=== PATIENT | male | born 1960 | race African-American/Black ===

== ENCOUNTER 2024-06-20 14:15 | Inpatient (IN) | payer MEDICARE, MEDICAID, SELFPAY ==
[2024-06-20] VITALS (8 sets, daily range): BP systolic 110–144; BP diastolic 64–94; PULSE 121–129; RESP 17–18; TEMP 38.1–39.4; O2SAT 86–99; BMI 20.9
--- NOTE | 2024-06-20 14:38 | EKG12_ITS ---
Test Reason : SOB Blood Pressure : */* mmHG Vent. Rate : 140 BPM Atrial Rate : 140 BPM P-R Int : 144 ms QRS Dur : 78 ms QT Int : 354 ms P-R-T Axes : 43 21 54 degrees QTcB Int : 540 ms Critical Test Result: High HR Sinus tachycardia Otherwise normal ECG Confirmed by PAPITO MEJIA, DEBO ([id number]), technical editor SONJA ADAMS ([id number]) on 06/27/2024 12:36:49 PM Referred By: MAURICIO Confirmed By: DEBO COBOS MD
--- NOTE | 2024-06-20 14:45 | EX.ED.VIS.UR ---
HPI HPI - URI History of Present Illness Chief Complaint: Shortness of Breath Narrative Narrative: 63-year-old male from a [facility]. He is unable to speak which I think is chronic. Will try to get over the penitentiary to get additional information. Reportedly was coughing and a sentiment for evaluation. Recent Illness/Hospitalization: No ROS ROS ED ROS Narrative Unable to obtain due to the patient's unable to speak. Review of Systems ROS Unobtainable: due to mental status Constitutional Constitutional ED: Reports fever(s) [facility] Medical History History of gastrostomy tube placement Cardiomegaly Home Medications ?Medication ?Instructions ?Recorded ?Last Taken ?Type acetaminophen 325 mg capsule 650 mg PO Q6H PRN 05/26/21 Unknown History (Tylenol) acetaminophen 325 mg capsule 975 mg PO BID 05/26/21 Unknown History (Tylenol) alprazolam 0.5 mg tablet 0.5 mg PO DAILY PRN 05/26/21 Unknown History guaifenesin 100 mg/5 mL oral liquid 200 mg PO Q4H PRN 05/26/21 Unknown History loratadine 10 mg capsule 10 mg PO DAILY 05/26/21 Unknown History polyethylene glycol 3350 17 17 g PO DAILY 05/26/21 Unknown History gram/dose oral powder (Miralax) propylene glycol 0.6 % eye drops 1 drp ophthalmic (eye) TID PRN 11/30/22 Unknown History (Systane Complete) sertraline 100 mg tablet 100 mg PO DAILY 11/30/22 Unknown History baclofen 10 mg tablet 10 mg .Route .COMPLEX #90 tabs 07/26/23 Unknown Rx levetiracetam 250 mg tablet 250 mg .Route .COMPLEX #60 tabs 07/26/23 Unknown Rx ykvkpfjsovdgxmq-hmruuvvwhvcrjpa-ST 5 ml PO Q4-6H PRN 05/29/24 Unknown History 2 mg-30 mg-10 mg/5 mL oral syrup dextran 70-hypromellose 0.1 %-0.3 1 drp ophthalmic (eye) QHS PRN 05/29/24 Unknown History % eye drops (GenTeal Tears Mild) lactose-reduced food with fiber ml PO TID 05/29/24 Unknown History 0.06 gram-1.5 kcal/mL oral liquid (Jevity 1.5 Raymundo) mineral oil gtts See Rx Instructions otic (ear) 05/29/24 Unknown History .COMPLEX white petrolatum-mineral oil 56.8 1 applic ophthalmic (eye) QHS 05/29/24 Unknown History %-42.5 % eye ointment (Refresh Lacri-Lube) Allergy/AdvReac Type Severity Reaction Status Date / Time tuberculin,PPD,multi-puncture Allergy Unknown unknown Verified 06/20/24 14:18 Social History Smoking Status: Never smoker second hand exposure: No alcohol intake: never substance use type: does not use seatbelt use: always EXAM Physical Exam Narrative Exam Narrative: 63-year-old male sitting upright in bed. Eyes are open. Vital signs temperature 100.6 orally. Pulse rate 121. Blood pressure 110/64. Pulse ox 95% on 2 L. Patient does not speak he is unable to communicate. There is no one with him. H EENT exam pupils round reactive light. No trauma to his head or neck. Trachea midline. Dry mucous membranes. No lymphadenopathy. Heart tachycardic 120 no murmur. Lungs coarse breath sounds bilaterally. Abdomen soft, nondistended normal bowel sounds without peritoneal signs. He is a gastric tube left upper quadrant. Extremities he has contractures in his upper extremities. Structures and muscular atrophy in his lower extremities. Neurologically his eyes are open. He is awake. He is unable to communicate by speech. He follows limited and no commands. Const Vital Signs: 06/20/24 14:18 06/20/24 14:22 06/20/24 14:38 Temperature 100.6 F H 100.6 F H Temperature Source Oral Oral Pulse Rate 121 H 128 H Respiratory Rate 17 18 Respiratory Effort Respiratory Depth Respiratory Pattern Blood Pressure 110/64 122/64 H Blood Pressure Mean 79 83 Pulse Ox 95 96 Oxygen Delivery Method Nasal Cannula Room Air Room Air Oxygen Flow Rate (L/min) 2 06/20/24 14:45 Temperature Temperature Source Pulse Rate Respiratory Rate Respiratory Effort Normal Respiratory Depth Normal Respiratory Pattern Normal Blood Pressure Blood Pressure Mean Pulse Ox Oxygen Delivery Method Nasal Cannula Oxygen Flow Rate (L/min) 2 Positive well nourished, well developed and contractures; Negative for obese or cachectic General Appearance ED: well developed and contractures; Negative for cachectic, cyanotic, diaphoretic or pallor Nutritional Appearance: Negative for cachectic or obese HEENT Reports dry mucous membranes normocephalic and atraumatic Mouth ED: Yes dry mucous membranes Mouth: dry mucous membranes Throat: posterior oropharynx normal Eyes PERRL and EOMs intact bilaterally Neck no lymphadenopathy, supple, no meningeal signs and no JVD Resp normal respiratory effort Resp Narrative: Coarse breath sounds bilaterally. Cardio S1 normal heart sound, S2 normal heart sound and no murmurs Rate: tachycardic Rhythm: regular rhythm GI non-tender and no masses Palpation: soft; Negative for tender, guarding or mass Back/Spine no CVA tenderness and normal ROM Extremity Negative for normal to inspection or full ROM Extremity Narrative: Contractures. Nontender. No edema. No swelling. No deformity. Limited range of motion. Muscular atrophy. General Extremety ED: Negative for cyanosis General Extremity: Negative for cyanosis Neuro No oriented x3 Neuro Narrative: Patient unable to speak. Not following commands. Eyes open. Awake. Contractures. Limited range of motion of both upper and lower extremities. Contractures. Sensorium / Orientation: orientation impaired; Negative for oriented to person, oriented to place or oriented to time Motor Exam: Negative for strength 5/5 throughout Psych mental status grossly normal Skin General Skin Exam: Negative for jaundice or pallor Lesions: no lesions Rashes: no rashes MDM MDM MDM Narrative Medical decision making narrative: 63-year-old male from a local penitentiary in [facility]. He has been there for years. I spoke to Joanne one of the penitentiary staff there. She said has been there for years. He has been coughing the last couple days. Today they were concerned he possibly may have aspirated his tube feed. Patient himself is unable to give any history. He had a hypoxia at the penitentiary facility in the high 80s. Undergoing evaluation for possible pneumonia versus aspiration versus viral URI etc. Repeat exam around 3:45 PM no significant change. Patient did have some vomiting he was given Zofran. His abdomen remains benign, nontender nondistended. He has bowel sounds. I also spoke to one of the workers from the penitentiary and came in to see the patient. He takes care of him frequently. He said this is not his baseline. Was concerned that he did aspirate at their facility. Lab Data Attestation: I reviewed the patient's lab results. Lab results narrative: CBC normal. White count 8.5. H&H 13 and 40. Platelets 198. Chest x-ray portable single view interpreted by myself shows no acute abnormality. No obvious pneumonia. Chemistries show sodium 142. Gap 15. BUN of 31 creatinine of 1 consistent with dehydration. Glucose 133. COVID, flu and RSV are negative. Labs: Laboratory Results - last 24 hr 06/20/24 14:33 WBC 8.5 RBC 4.63 Hgb 13.7 Hct 41.0 MCV 88.6 MCH 29.6 MCHC 33.4 RDW Std Deviation 40.1 RDW Coeff of Usha 12.5 Plt Count 198 MPV 11.7 Immature Gran % (Auto) 0.200 Neut % (Auto) 87.1 H Lymph % (Auto) 7.4 L [place] % (Auto) 3.8 Eos % (Auto) 1.3 Baso % (Auto) 0.2 Absolute Neuts (auto) 7.4 Absolute Lymphs (auto) 0.63 L Nucleated RBC % 0 Sodium 142 Potassium 4.2 Chloride 103 Carbon Dioxide 24.1 Anion Gap 15 BUN 31 H Creatinine 1.00 Estim Creat Clear Calc 59.48 Est GFR (MDRD) Non-Af 84 BUN/Creatinine Ratio 31.0 H Glucose 133 H Calcium 9.8 Radiography Chest X-Ray - ED: 1 View, Read by ED Physician, Normal, Heart, Lungs, Mediastinum, Bony Structures, No Acute Disease and Chronic Changes Diagnostic Testing: Clinical Impression(s) from Imaging Studies Chest X-Ray 06/20/24 15:10 IMPRESSION: No Acute Findings. Reading Location: [facility] Chest x-ray portable, single view there going to do a 2 view there are unable due to the patient. Normal cardiac silhouette. Normal lung anderson. No obvious pneumonia. No effusion. Rhythm Strip Rhythm Strip: Sinus Tach Rate: 140 Ectopy: None EKG Initial EKG: Attestation: I personally reviewed and interpreted this EKG as follows: Interpretation: Sinus Tachycardia Comments: Sinus tachycardia rate of 140 no acute signs of [place] or ischemia. Discharge Plan Triage Chief Complaint: Shortness of Breath ED Provider: John Godinez Dx/Rx/DC Orders Prescriptions: No Action loratadine 10 mg capsule 10 mg PO DAILY polyethylene glycol 3350 [Miralax] 17 gram/dose powder 17 g PO DAILY acetaminophen [Tylenol] 325 mg capsule 975 mg PO BID alprazolam 0.5 mg tablet 0.5 mg PO DAILY PRN Rx Instructions: 30-60 mins prior to eye exam acetaminophen [Tylenol] 325 mg capsule 650 mg PO Q6H PRN guaifenesin 100 mg/5 mL liquid 200 mg PO Q4H PRN Systane Complete 0.6 % drops 1 drp ophthalmic (eye) TID PRN Rx Instructions: administer 1 drop to both eyes 3 times daily (dry eyes) sertraline 100 mg tablet 100 mg PO DAILY Rx Instructions: 100 mg via G-tube daily GenTeal Tears Mild 0.1-0.3 % drops 1 drp ophthalmic (eye) QHS PRN Rx Instructions: instill 1-2 drops in both eyes as needed for c/o of dry eyes baclofen 10 mg tablet 10 mg .ROUTE .COMPLEX Qty: 90 11RF Rx Instructions: 10 mg via G-tube TID levetiracetam 250 mg tablet 250 mg .ROUTE .COMPLEX Qty: 60 11RF Rx Instructions: 250 mg via G-tube BID evcxipsbnvhcwav-qmyisimiu-WB 2-30-10 mg/5 mL syrup 5 ml PO Q4-6H PRN mineral oil gtts See Rx Instructions otic (ear) .COMPLEX Rx Instructions: into the ear(s) 5-10 drops to both ears every week on Tuesdays; Refresh Lacri-Lube 56.8-42.5 % ointment 1 applic ophthalmic (eye) QHS Jevity 1.5 Raymundo 0.06 gram-1.5 kcal/mL liquid PO TID Rx Instructions: Uses Jevity or Isosource Primary Care Provider: Tej Hernandez Referrals: Tej Hernandez DO [Primary Care Provider] - Print Language: Chinese
[2024-06-20] MEDS: 0.9% Normal Saline (1000mL) 1,000 ML 999 ML IV (14:54)
[2024-06-20 15:04] LABS: Absolute Lymphocyte Count 0.63 X10^3/uL (0.83-4.51); Absolute Neutrophil Count 7.4 X10^3/uL (2.0-7.7); Basophil# 0.02 X10^3/uL; Basophil% 0.2 % (0-1); Eosinophil# 0.11 X10^3/uL; Eosinophils% 1.3 % (0-5); Hemoglobin 13.7 g/dL (13.0-16.5); Lymphocyte # 0.63 X10^3/ul (0.83-4.51); Lymphocyte % 7.4 % (19-41); Mean Corp Hgb Conc 33.4 g/dL (32-36); Mean Corpuscular Hgb 29.6 pg (27.0-32.0); Mean Corpuscular Volume 88.6 fL (80-94); Mean Platelet Vol. 11.7 fl (6.2-12.0); Monocyte# 0.32 X10^3/uL; Monocyte% 3.8 % (0-10); NRBC Flagged by Analyzer 0 % (0-5); Neutrophil # 7.42 X10^3/uL (2.7-7.7); Neutrophil % 87.1 % (47-70); Platelet Count 198 K/mm3 (150-450); RBC Distribution Width CV 12.5 % (11.6-14.6); RBC Distribution Width SD 40.1 fl (35.1-43.9); Red Blood Count 4.63 M/mm3 (4.6-6.2); White Blood Count 8.5 K/mm3 (4.4-11.0)
--- NOTE | 2024-06-20 15:10 | RAD_ITS ---
PROCEDURE: CHEST 1 VIEW (PORTABLE) 06/20/2024 REASON FOR EXAM: COUGH TECHNIQUE: Frontal view of the chest. COMPARISON: None. FINDINGS: Hardware: None. Heart: The heart size is normal. Lungs: Low lung volumes. Bibasilar atelectasis. No focal consolidation, pleural effusion or pneumothorax. Bones: Degenerative changes are identified within the thoracic spine. Other: Gaseous distention of the stomach. RAD/Chest 1 View (Portable) IMPRESSION: No Acute Findings. Reading Location: [id number]
[2024-06-20 15:26] LABS: Anion Gap 15 (5-15); BUN 31 mg/dL (4-19); Calcium,Total 9.8 mg/dL (7.6-11.0); Carbon Dioxide 24.1 mmol/L (21.0-32.0); Chloride 103 mmol/L (98-108); EST Glomerular Filtration Rate 84 (>60); Estimated Creatinine Clearance 59.48 ml/min (50-250); Glucose 133 mg/dL (70-99); Potassium 4.2 mmol/L (3.3-5.1); Sodium Level 142 mmol/L (133-145)
[2024-06-20] MEDS: Ondansetron 4 MG/2 ML Vial IV ×2 (15:55→22:06)
[2024-06-20] MEDS: Acetaminophen 650 MG Suppository RC (16:13)
--- NOTE | 2024-06-20 16:23 | PCM.HP.STD ---
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 He was brought in from his senior living on account of shortness of breath and coughing. History was mainly obtained from his caregiver. According to his caregiver, he was not present at the time that patient started feeling short of breath but was told that patient had some vomiting episodes this morning. He cannot tell how many times the patient vomited. He subsequently became short of breath so they brought him into the ED. He was also coughing. Patient was also noted to be febrile. Review of systems was otherwise negative per the caregiver. Vitals in the ED at time of review were temperature of 102.5 Fahrenheit, pulse rate of 128 and blood pressure of 144/86. He was saturating at 99% on 2 L of oxygen. CBC showed WBC of 8.5 with hemoglobin of 13.7 and platelets of 198. Chemistry was significant for sodium of 142 with potassium of 4.2 and creatinine of 1. Lactic acid was 2.3. CXR showed low lung volumes with no focal consolidation and bibasilar atelectasis. He is being admitted to be managed for hypoxia due to sepsis from probable aspiration pneumonia. [facility] Medical History History of gastrostomy tube placement Cardiomegaly Home Medications ?Medication ?Instructions ?Recorded ?Last Taken ?Type acetaminophen 325 mg capsule 650 mg PO Q6H PRN fever or pain 05/26/21 Unknown History (Tylenol) acetaminophen 325 mg capsule 975 mg PO BID pain and fever 05/26/21 Unknown History (Tylenol) alprazolam 0.5 mg tablet 0.5 mg PO DAILY PRN anxiety 05/26/21 Unknown History guaifenesin 100 mg/5 mL oral liquid 200 mg PO Q4H PRN cough 05/26/21 Unknown History loratadine 10 mg capsule 10 mg PO DAILY allergy 05/26/21 Unknown History polyethylene glycol 3350 17 17 g feeding tube DAILY 05/26/21 Unknown History gram/dose oral powder (Miralax) constipation propylene glycol 0.6 % eye drops 1 drp ophthalmic (eye) TID PRN dry 11/30/22 Unknown History (Systane Complete) eye(s) sertraline 100 mg tablet 100 mg PO DAILY depression 11/30/22 Unknown History baclofen 10 mg tablet 10 mg .Route .COMPLEX spascity #90 07/26/23 Unknown Rx tabs sqrbyelycgwypfx-njbpowiqarrawcl-ZG 5 ml PO Q4-6H PRN bronchitis 05/29/24 Unknown History 2 mg-30 mg-10 mg/5 mL oral syrup dextran 70-hypromellose 0.1 %-0.3 1 drp ophthalmic (eye) QHS PRN dry 05/29/24 Unknown History % eye drops (GenTeal Tears Mild) eye(s) lactose-reduced food with fiber 120 ml feeding tube TID feeding 05/29/24 Unknown History 0.06 gram-1.5 kcal/mL oral liquid (Jevity 1.5 Raymundo) white petrolatum-mineral oil 56.8 1 applic ophthalmic (eye) QHS dry 05/29/24 Unknown History %-42.5 % eye ointment (Refresh eye Lacri-Lube) levetiracetam 250 mg tablet 250 mg PO Q12H seizure 06/20/24 Unknown History Allergy/AdvReac Type Severity Reaction Status Date / Time tuberculin,PPD,multi-puncture Allergy Unknown unknown Verified 06/20/24 14:18 Social History Smoking Status: Never smoker second hand exposure: No alcohol intake: never substance use type: does not use seatbelt use: always ROS ROS Narrative Unable to do review of systems as patient is nonverbal at baseline. Review of systems obtained from caregivers as per HPI Review of Systems ROS Unobtainable: due to encephalopathy Vital Signs Vital Signs Vital Signs: 06/20/24 14:18 06/20/24 14:22 06/20/24 14:38 Temperature 100.6 F H 100.6 F H Temperature Source Oral Oral Pulse Rate 121 H 128 H Respiratory Rate 17 18 Respiratory Effort Respiratory Depth Respiratory Pattern Blood Pressure 110/64 122/64 H Blood Pressure Mean 79 83 Pulse Ox 95 96 Oxygen Delivery Method Nasal Cannula Room Air Room Air Oxygen Flow Rate (L/min) 2 Fraction of Inspired Oxygen (FIO2) 06/20/24 14:45 06/20/24 15:22 06/20/24 16:00 Temperature 102.9 F H 102.5 F H Temperature Source Oral Oral Pulse Rate 129 H 128 H Respiratory Rate 18 18 Respiratory Effort Normal Respiratory Depth Normal Respiratory Pattern Normal Blood Pressure 144/86 H 144/86 H Blood Pressure Mean 105 105 Pulse Ox 98 99 Oxygen Delivery Method Nasal Cannula Nasal Cannula Nasal Cannula Oxygen Flow Rate (L/min) 2 2 2 Fraction of Inspired Oxygen (FIO2) 06/20/24 16:17 06/20/24 16:18 Temperature Temperature Source Pulse Rate Respiratory Rate Respiratory Effort Respiratory Depth Respiratory Pattern Blood Pressure Blood Pressure Mean Pulse Ox 86 Oxygen Delivery Method Room Air Nasal Cannula Oxygen Flow Rate (L/min) 2 Fraction of Inspired Oxygen (FIO2) 96 Weight Weight: 125 lb 14.143 oz Body Mass Index (BMI) 20.9 Physical Exam Const alert Constitutional Narrative: nonverbal, restless General Appearance: uncooperative HEENT normocephalic and head/scalp atraumatic HEENT Narrative: dry oral mucosa Eyes PERRL, EOMs intact bilaterally and conjunctivae normal Neck no lymphadenopathy and supple Resp Resp Narrative: Mildly diminished breath sounds bibasilarly. No wheezes or crackles. Was previously on 2 L of oxygen but had just been weaned off of oxygen when I went into his room. Cardio regular rate, regular rhythm, S1 normal heart sound, S2 normal heart sound and no murmurs GI normal to inspection, nondistended, normoactive bowel sounds, soft to palpation, non-tender and non-distended GI Narrative: has a Marky tube in situ Extremity Extremity Narrative: Has chronic contractures of both upper extremities and lower extremities. Neuro Neuro Narrative: Patient confused, restless Sensorium / Orientation: awake and alert Results Lab / Micro Data 06/20/24 14:33 06/20/24 14:33 Labs: Laboratory Results - last 24 hr 06/20/24 14:33: WBC 8.5, RBC 4.63, Hgb 13.7, Hct 41.0, MCV 88.6, MCH 29.6, MCHC 33.4, RDW Std Deviation 40.1, RDW Coeff of Usha 12.5, Plt Count 198, MPV 11.7, Immature Gran % (Auto) 0.200, Neut % (Auto) 87.1 H, Lymph % (Auto) 7.4 L, [place] % (Auto) 3.8, Eos % (Auto) 1.3, Baso % (Auto) 0.2, Absolute Neuts (auto) 7.4, Absolute Lymphs (auto) 0.63 L, Nucleated RBC % 0, Sodium 142, Potassium 4.2, Chloride 103, Carbon Dioxide 24.1, Anion Gap 15, BUN 31 H, Creatinine 1.00, Estim Creat Clear Calc 59.48, Est GFR (MDRD) Non-Af 84, BUN/Creatinine Ratio 31.0 H, Glucose 133 H, Calcium 9.8 Micro: Microbiology 06/20/24 14:50 Mucosa - Nose SARS-CoV-2, Influenza & RSV (PCR) - Final Rhythm Strip Rhythm Strip: Sinus Tach Rate: 140 Ectopy: None Imaging Radiology Impression Chest X-Ray 06/20/24 15:10 IMPRESSION: No Acute Findings. Reading Location: [facility] Assessment & Plan Assessment/Plan (1) History of cerebral palsy: (2) Aspiration pneumonia: (3) Hypoxia: (4) Sepsis: PLAN: Plan #SIRS criteria due to probable aspiration pneumonia Patient admitted from his senior living with a complaint of hypoxia after several episodes of vomiting Patient does not wear any oxygen at baseline. He was requiring 2 L of oxygen on admission. He is on tube feeds. Chest x-ray showed no acute cardiopulmonary pathology and showed bibasilar atelectasis and gaseous distention of the stomach Patient is tachycardic and lactic acid was elevated at 2.3. There is no clear source of infection also. Patient had been weaned down to room air at time of my review Will admit to med surg. Patient was on room air at time of review, and lactic acid was only 2.3. He did have a fever of 102F, but no elevated wbc or respirator distress, so I think patient is appropriate for PCU. Keep n.p.o. for now. Hydrate with IV fluid normal saline at 125 cc/h Start on IV Zosyn. Get respiratory panel and sputum cultures. Titrate oxygen as needed to maintain saturation above 90%. Get blood cultures also. #Hypoxia: Due to probable aspiration pneumonia. Management as above. He was down to 2 L of oxygen at time of my review. #History of cerebral palsy with contractures of upper and lower extremities. PT OT on board. On baclofen. On sertraline #History of seizure disorder: On Keppra DVT prophylaxis: Lovenox CODE STATUS: Paperwork from senior living shows patient is DNR CCA no intubation. 7:23pm Patient was initially admitted to [facility] but he remained tachycardic and his heart rate was going up to the 150s while he was in [facility]. [facility] also [facility] and was on 2 L of oxygen. Despite being given Tylenol in the ED temperature was about 100.7 on MedSurg. His COVID, flu and RSV test were negative. Will get a more expansive respiratory panel. Will transfer to PCU also. Will get a CTA chest also as patient is nonverbal and so may even be able to tell us if he is having any chest pain. Out of an abundance of caution I want to rule out a PE. EKG also ordered. Will also order blood cultures, urine for strep and legionella. 2D echo ordered for tomorrow. TSH was ordered. Will also add on vancomycin. Give IV metoprolol 5mg x 1 for now. Charges/Coding Visit Charges Inpatient E&M: 61136 Init Hosp L3
[2024-06-20 16:26] LABS: Lactic Acid 2.3 mmol/L (0.0-2.0)
[2024-06-20] MEDS: Piperacil/Tazobactam 4.5 GM in 0.9% Normal Saline (100mL MB+) 100 ML IV (16:37)
[2024-06-20] MEDS: Metoclopramide 10 MG/2 ML Vial 5 MG IV (17:14)
--- NOTE | 2024-06-20 19:35 | EKG12_ITS ---
Test Reason : AFIB Blood Pressure : */* mmHG Vent. Rate : 118 BPM Atrial Rate : 118 BPM P-R Int : 160 ms QRS Dur : 82 ms QT Int : 302 ms P-R-T Axes : 48 8 49 degrees QTcB Int : 423 ms Sinus tachycardia Nonspecific T wave abnormality Abnormal ECG When compared with ECG of 20-Jun-2024 14:50, MANUAL COMPARISON REQUIRED DATA IS UNCONFIRMED Confirmed by PAPITO MEJIA, DEBO ([id number]), editorial cartoonist SONJA ADAMS ([id number]) on 06/27/2024 12:42:10 PM Referred By: LINDA Confirmed By: DEBO COBOS MD
[2024-06-20 19:59] LABS: Reflex Lactate? Y
--- NOTE | 2024-06-20 20:10 | CT_ITS ---
PROCEDURE: CTA CHEST W/WO CONTRAST 06/20/2024 REASON FOR EXAM: PULMONARY EMBOLISM TECHNIQUE: CTA axial imaging of the chest with intravenous contrast. Multiplanar and multisequence images were obtained. PATIENT PREPARATION: Per protocol CONTRAST: Omnipaque 350 VOLUME: 100 mL Not Provided Gauge IV One or more dose reduction techniques were used (e.g., Automated exposure control, adjustment of the mA and/or kV according to patient size, use of iterative reconstruction technique). COMPARISON: None FINDINGS: Hardware: None Lymph nodes: No suspicious hilar and mediastinal adenopathy. Heart: Mild cardiomegaly. Thoracic Aorta: No thoracic aortic aneurysm or dissection. Pulmonary Vessels: No large central pulmonary emboli are identified. Contrast timing is suboptimal for evaluation of more distal branches. Most Proximal Level of Embolus (if embolus present): None Lungs and Airways: Central airways are patent without endobronchial lesions. Patchy opacities in the lung bases, compatible with atelectasis. No pneumothorax. No pleural effusion. No suspicious pulmonary nodule. No focal consolidation. Scattered calcified granulomas. Upper Abdomen: Visualized portions of the upper abdominal viscera are unremarkable. Bones: Bone windows are unremarkable. CT/CTA Chest W/WO Contrast IMPRESSION: No evidence of pulmonary embolism or acute findings in the thorax. Reading Location: [facility]
--- NOTE | 2024-06-20 20:50 | PCM.HOSP.N ---
Hospitalist Note Patient with emesis immediately upon transition from [facility] to PCU. Noted to be coffee ground in appearance. Will guiac contents, given ongoing N/V with aspiration concerns will place NGT to LIWS, will obtain serial HH, will d/c lovenox until assure no GI bleed, will start protonix also until assure no GI bleed.
[2024-06-20] MEDS: Morphine 2 MG/ML Syringe IV (22:05)
[2024-06-20] MEDS: 0.9% Normal Saline (1000mL) 1,000 ML 150 ML IV (22:09)
[2024-06-20 22:15] LABS: Hematocrit 33.3 % (40-54); Hemoglobin 11.4 g/dL (13.0-16.5)
[2024-06-20] MEDS: Pantoprazole Sodium 80 MG in 0.9% Normal Saline (50mL Bag) 15 ML 420 MG IV BOLUS (22:17)
[2024-06-20] MEDS: 0.9% Normal Saline (250mL Bag) 250 ML 15 ML IV (22:17)
[2024-06-20 22:38] LABS: Lactic Acid 1.9 mmol/L (0.0-2.0)
[2024-06-21] VITALS (9 sets, daily range): BP systolic 113–159; BP diastolic 56–78; PULSE 93–109; RESP 17–24; TEMP 36.7–38.3; O2SAT 91–98
[2024-06-21] MEDS: Vancomycin HCl 1,500 MG in 0.9% Normal Saline (500mL Bag) 500 ML 250 MG IV (00:25)
[2024-06-21] MEDS: Petrolatum,White 3.75GM OPTH.TUBE 1 APPLIC OPHTHALMIC ×2 (00:27→21:51)
[2024-06-21] MEDS: Lorazepam 2 MG/ML WCH Syringe 0.5 MG IV (01:09)
[2024-06-21] MEDS: 0.9% Saline Lock 10 ML Syringe IV ×3 (01:10→20:12)
[2024-06-21 01:33] LABS: Hematocrit 32.3 % (40-54); Hemoglobin 10.6 g/dL (13.0-16.5)
--- NOTE | 2024-06-21 01:45 | PCM.RX.CS ---
Consult Antibiotic Management Pharmacy has been consulted to manage selected antibiotic: Vancomycin Type of Intervention Type of Consult: New Suspected Infection Suspected Infection: Pneumonia Labs Labs: Sodium 142 mmol/L (133-145) 06/20/24 14:33 Potassium 4.2 mmol/L (3.3-5.1) 06/20/24 14:33 Chloride 103 mmol/L (98-108) 06/20/24 14:33 Carbon Dioxide 24.1 mmol/L (21.0-32.0) 06/20/24 14:33 Anion Gap 15 (5-15) 06/20/24 14:33 BUN 31 mg/dL (4-19) H 06/20/24 14:33 Creatinine 1.00 mg/dL (0.70-1.20) 06/20/24 14:33 Est GFR (MDRD) Non-Af 84 (>60) 06/20/24 14:33 BUN/Creatinine Ratio 31.0 RATIO (10-20) H 06/20/24 14:33 Glucose 133 mg/dL (70-99) H 06/20/24 14:33 Microbiology Microbiology: Microbiology 06/20/24 20:25 Mucosa - Nasopharyngeal Respiratory Panel (PCR) - Final 06/20/24 14:50 Mucosa - Nose SARS-CoV-2, Influenza & RSV (PCR) - Final Goal Trough Goal Trough: 15-20 mcg/mL Pharmacy Plan for Drug Dosing Pharmacy Plan for Drug Dosing: NEW IV VANCOMYCIN Consulting Physician: Dr. Ghotra Indication: Pneumonia Goal Trough: 15-20 SrCr: 1.0 CrCl: 60 mL/min Comments: Patient had loading dose of 1500mg x1 ordered and administered 06/21 @0025 Vancomycin Dose: 750mg IV Q12hr to start 06/21/24 @1200 Pending Level: 06/22/24 @1130, prior to 4th total dose per protocol Pharmacy Service will continue to monitor and adjust dosing as required.
[2024-06-21] MEDS: levETIRAcetam IV 250 MG in 0.9% Normal Saline (100mL Bag) 100 ML 410 MG IV ×3 (01:55→20:15)
[2024-06-21] MEDS: Pantoprazole Sodium 80 MG in 0.9% Normal Saline (100mL Bag) 80 ML 10 MG CONT INF ×3 (03:40→23:47)
[2024-06-21] MEDS: Piperacil/Tazobactam 3.375 GM in 0.9% Normal Saline (50mL MB+) 50 ML IV (03:40)
[2024-06-21] MEDS: 0.9% Normal Saline (1000mL) 1,000 ML 150 ML IV (05:35)
[2024-06-21 05:37] LABS: Absolute Lymphocyte Count 1.25 X10^3/uL (0.83-4.51); Absolute Neutrophil Count 9.1 X10^3/uL (2.0-7.7); Basophil# 0.03 X10^3/uL; Basophil% 0.3 % (0-1); Hematocrit 31.6 % (40-54); Hemoglobin 10.3 g/dL (13.0-16.5); Lymphocyte # 1.25 X10^3/ul (0.83-4.51); Lymphocyte % 11.3 % (19-41); Mean Corp Hgb Conc 32.6 g/dL (32-36); Mean Corpuscular Hgb 29.3 pg (27.0-32.0); Mean Platelet Vol. 11.6 fl (6.2-12.0); Monocyte# 0.65 X10^3/uL; Monocyte% 5.9 % (0-10); NRBC Flagged by Analyzer 0 % (0-5); Neutrophil % 82.2 % (47-70); Platelet Count 178 K/mm3 (150-450); RBC Distribution Width CV 12.8 % (11.6-14.6); RBC Distribution Width SD 41.7 fl (35.1-43.9); Red Blood Count 3.51 M/mm3 (4.6-6.2); White Blood Count 11.1 K/mm3 (4.4-11.0)
--- NOTE | 2024-06-21 05:55 | ECHOD_ITS ---
Reason For Study Reason For Study: ARRYTHMIA Procedure This was a 2D Doppler, Color Flow transthoracic echocardiogram. Technically difficult study due to patient being nonverbal and unable to cooperate. Exam performed portable in patient room. Left Ventricle Normal left ventricle. The estimated ejection fraction is 55-60 %. Right Ventricle Normal right ventricle. Normal systolic function. Atria Normal left atrium. Mitral Valve The mitral valve is structurally normal. No prolapse or stenosis seen. Trivial mitral valve insufficiency. Tricuspid Valve Normal tricuspid valve. Trivial tricuspid valve insufficiency. Aortic Valve Trisinus/trileaflet aortic valve. Pulmonic Valve The pulmonic valve is not well visualized. Great Vessels The aortic root is not well visualized. Pericardium/Pleural No pericardial effusion. MMode/2D Measurements & Calculations LVIDd: 4.5 cm IVSd: 0.99 cm LVOT diam: 2.0 cm LVIDs: 3.4 cm LVPWd: 0.97 cm LVOT area: 3.2 cm2 FS: 25.0 % Ao root diam: 2.9 cm LAV(MOD-bp): 16.5 ml LVAd ap4: 19.3 cm2 LAV(MOD-bp) Indexed: 10.2 ml/m2 LVLd ap4: 7.6 cm LAV(MOD-sp2): 16.8 ml EDV(MOD-sp4): 43.3 ml LAV(MOD-sp4): 14.0 ml EDV(sp4-el): 41.5 ml LVAs ap4: 8.7 cm2 LVLs ap4: 6.1 cm ESV(MOD-sp4): 11.9 ml ESV(sp4-el): 10.5 ml EF(MOD-sp4): 72.4 % EF(sp4-el): 74.6 % SV(MOD-sp4): 31.3 ml SV(sp4-el): 30.9 ml LA A4 area: 8.4 cm2 SI(MOD-sp4): 19.3 ml/m2 LA dimension(2D): 2.8 cm RA A4 area: 5.0 cm2 Time Measurements MV dec time: 0.13 sec Doppler Measurements & Calculations MV E max mick: 98.2 cm/sec Lat Peak E' Mick: 8.4 cm/sec Med Peak E' Mick: 9.4 cm/sec MV A max mick: 107.5 cm/sec E/E' lat: 11.7 E/E' med: 10.5 MV E/A: 0.91 MV V2 max: 103.8 cm/sec Ao V2 max: 116.4 cm/sec MV max P.3 mmHg MV dec slope: 731.8 cm/sec2 Ao max P.4 mmHg MV V2 mean: 75.4 cm/sec Ao V2 mean: 86.2 cm/sec MV mean P.4 mmHg Ao mean P.3 mmHg MV V2 VTI: 19.8 cm Ao V2 VTI: 21.7 cm AV (velocity ratio): 0.92 MVA(VTI): 3.2 cm2 NIKKO(I,D): 3.0 cm2 NIKKO(V,D): 2.9 cm2 LV V1 max: 105.8 cm/sec SV(LVOT): 64.2 ml PA V2 max: 77.0 cm/sec LV V1 max P.5 mmHg PA V2 mean: 57.0 cm/sec LV V1 mean P.6 mmHg LV V1 mean: 74.8 cm/sec LV V1 VTI: 19.9 cm ECHO/Echo Complete Interpretation Summary The estimated ejection fraction is 55-60 %. Normal LV systolic function No significant valvular abnormality No previous echo to compare. Ordering Physician: Anamaria Ghotra Referring Physician: SHAQ YANG Performed By: Rebeka Brown RCS
[2024-06-21 06:37] LABS: Anion Gap 9 (5-15); BUN 28 mg/dL (4-19); BUN/Creat Ratio 27.4 RATIO (10-20); Calcium,Total 8.3 mg/dL (7.6-11.0); Carbon Dioxide 21.9 mmol/L (21.0-32.0); Chloride 117 mmol/L (98-108); Creatinine, Serum 1.03 mg/dL (0.70-1.20); EST Glomerular Filtration Rate 81 (>60); Estimated Creatinine Clearance 57.75 ml/min (50-250); Glucose 120 mg/dL (70-99); Potassium 4.4 mmol/L (3.3-5.1); Sodium Level 148 mmol/L (133-145)
[2024-06-21] MEDS: Ipratropium/Albuterol Sulfate 3 ML AMPUL.NEB INHALATION ×2 (08:48→20:19)
--- NOTE | 2024-06-21 09:01 | CASEMGMT ---
Social Work Pt is here from a residential. RANDY called REGINALD Martinez at residential, to discuss prior level of function and anticipated discharge plan. Pt's PCP is Tej Hernandez, sees Dr. Gomez for psychiatry and Dr. Mota for neurology. Pt has a guardian, Aline Renae, RANDY asked the residential to send over the documentation Pt receives full care at the residential, cooking, cleaning, medication, bathing, using restroom. Pt has a feeding tube, is allowed pleasure feeds only w/supervision. Pt uses a w/c at baseline. Plan will be for pt to return to the residential at discharge, and Michelle states the residential is able to pick him up when he is medically ready. RANDY called pt's guardian Aline Renae, confirmed w/her the plan will be for pt to return to the residential when medically ready. RANDY did place a green sheet on the chart, though it is anticipated pt will be here through the weekend. RANDY will continue to follow. SHANTI Catherine
[2024-06-21] MEDS: Dextrose 5%-Water (1000mL Bag) 1,000 ML 100 ML IV (09:13)
[2024-06-21] MEDS: Acetaminophen 650 MG Suppository RC ×2 (09:14→20:13)
--- NOTE | 2024-06-21 12:08 | PN_ITS ---
Subjective Subjective Patient seen and examined. Unable to do review of systems as he is nonverbal. On 2L of oxygen by nasal canula. he is on 2L of oxygen. His HR has improved. He also had coffee-ground emesis overnight so lovenox was held, and he was started on protonix. His Hb has remained stable. Objective Data Objective Data Vital Signs: Vital Signs Temp Pulse Resp BP Pulse Ox O2 Del Method O2 Flow Rate 99.6 F H 98 20 H 134/65 H 97 Nasal Cannula 2 06/21/24 08:26 06/21/24 08:48 06/21/24 08:48 06/21/24 08:26 06/21/24 08:48 06/21/24 08:48 06/21/24 08:48 FiO2 96 06/20/24 16:18 Oxygen Flow Rate (L/min) 2 Oxygen Delivery Method Nasal Cannula Weight: 125 lb 14.143 oz Body Mass Index (BMI) 20.9 Intake & Output: Intake and Output for Last 24 Hours 06/19/24 06/20/24 06/21/24 23:59 23:59 23:59 Intake Total 1100 / 1100 2370.0 / 2370.0 Output Total 850 / 850 Balance 1100 / 1100 1520.0 / 1520.0 Lab / Micro Data 06/21/24 05:16 06/21/24 05:16 Labs: Laboratory Results - last 24 hr 06/20/24 14:33: WBC 8.5, RBC 4.63, Hgb 13.7, Hct 41.0, MCV 88.6, MCH 29.6, MCHC 33.4, RDW Std Deviation 40.1, RDW Coeff of Usha 12.5, Plt Count 198, MPV 11.7, Immature Gran % (Auto) 0.200, Neut % (Auto) 87.1 H, Lymph % (Auto) 7.4 L, [place] % (Auto) 3.8, Eos % (Auto) 1.3, Baso % (Auto) 0.2, Absolute Neuts (auto) 7.4, A bsolute Lymphs (auto) 0.63 L, Nucleated RBC % 0, Sodium 142, Potassium 4.2, Chloride 103, Carbon Dioxide 24.1, Anion Gap 15, BUN 31 H, Creatinine 1.00, Estim Creat Clear Calc 59.48, Est GFR (MDRD) Non-Af 84, BUN/Creatinine Ratio 31.0 H, Glucose 133 H, Calcium 9.8 06/20/24 15:54: Lactic Acid 2.3 H* 06/20/24 19:50: TSH 1.520 06/20/24 22:04: Hgb 11.4 L, Hct 33.3 L, Lactic Acid 1.9 06/21/24 01:15: Hgb 10.6 L, Hct 32.3 L 06/21/24 05:16: WBC 11.1 H, RBC 3.51 L, Hgb 10.3 L, Hct 31.6 L, MCV 90.0, MCH 29.3, MCHC 32.6, RDW Std Deviation 41.7, RDW Coeff of Usha 12.8, Plt Count 178, MPV 11.6, Immature Gran % (Auto) 0.300, Neut % (Auto) 82.2 H, Lymph % (Auto) 11.3 L, [place] % (Auto) 5.9, Eos % (Auto) 0.0, Baso % (Auto) 0.3, Absolute Neuts (auto) 9.1 H, Absolute Lymphs (auto) 1.25, Nucleated RBC % 0, Sodium 148 H, Potassium 4.4, Chloride 117 H, Carbon Dioxide 21.9, Anion Gap 9, BUN 28 H, Creatinine 1.03, Estim Creat Clear Calc 57.75, Est GFR (MDRD) Non-Af 81, B UN/Creatinine Ratio 27.4 H, Glucose 120 H, Calcium 8.3 Micro: Microbiology 06/20/24 20:25 Mucosa - Nasopharyngeal Respiratory Panel (PCR) - Final 06/20/24 14:50 Mucosa - Nose SARS-CoV-2, Influenza & RSV (PCR) - Final Radiography Diagnostic Testing: Radiology Impression Chest X-Ray 06/20/24 15:10 IMPRESSION: No Acute Findings. Reading Location: [facility] Chest CTA 06/20/24 20:10 IMPRESSION: No evidence of pulmonary embolism or acute findings in the thorax. Reading Location: [facility] Rhythm Strip Rhythm Strip: Sinus Tach Rate: 140 Ectopy: None Physical Exam Const alert Constitutional Narrative: nonverbal, restless General Appearance: uncooperative HEENT normocephalic and head/scalp atraumatic Eyes PERRL, EOMs intact bilaterally and conjunctivae normal Neck no lymphadenopathy and supple Lymph Lymphatic: no lymphadenopathy noted Resp Resp Narrative: Mildly diminished breath sounds bibasilarly. No wheezes or crackles. on 2L of oxygen Cardio regular rate, regular rhythm, S1 normal heart sound, S2 normal heart sound and no murmurs GI normal to inspection, nondistended, normoactive bowel sounds, soft to palpation, non-tender and non-distended GI Narrative: has a Marky tube in situ Extremity Extremity Narrative: Has chronic contractures of both upper extremities and lower extremities. Neuro Neuro Narrative: Patient confused, restless Sensorium / Orientation: awake and alert Motor Exam: general weakness Psych Psych Narrative: confused. Assessment & Plan Assessment/Plan (1) History of cerebral palsy: (2) Aspiration pneumonia: (3) Hypoxia: (4) Sepsis: PLAN: Plan #SIRS criteria due to probable aspiration pneumonia * on 2L of oxygen still. * Chest x-ray showed no acute cardiopulmonary pathology and showed bibasilar atelectasis and gaseous distention of the stomach * tachycardia has improved. HR is 98 this morning. * on IV Zosyn. Get respiratory panel and sputum cultures. * Titrate oxygen as needed to maintain saturation above 90%. * blood cultures pending. * CTA chest was negative for any evidence of PE and showed no acute cardiopulmonary findings. * respiratory panel negative. * #Hypoxia: * Due to probable aspiration pneumonia. Management as above. * remains on 2L of oxygen by nasal canula #Coffee-ground emesis * Patient had coffee-ground emesis yesterday. Has improved. Hemoglobin 10.3 today. * Hb was 13.7 yesterday, and is 10.;3 today. * Will check iron profile also * Stool for occult blood ordered and pending. On pantoprazole. Lovenox discontinued and SCDs for DVT prophylaxis. * Hemoglobin continues to drop will consult gastroenterology. * I think his hemoglobin of 13.7 yesterday may have been due to hemoconcentration as he may have been dehydrated also. * #Hypernatremia: Na is 148. Will place on D5W and trend. #History of cerebral palsy with contractures of upper and lower extremities. PT OT on board. On baclofen. On sertraline #History of seizure disorder: On Keppra DVT prophylaxis:SCDs. Lovenox dc'd due to one episode of coffee ground emesis yesterday CODE STATUS: Paperwork from residential shows patient is DNR CCA no intubation. Charges/Coding Visit Charges Inpatient E&M: 73329 Subs Hosp L3
[2024-06-21] MEDS: Vancomycin HCl 750 MG in 0.9% Normal Saline (250mL Bag) 250 ML 250 MG IV ×2 (12:38→23:52)
[2024-06-21] MEDS: Morphine 2 MG/ML Syringe IV ×2 (13:55→20:09)
[2024-06-21] MEDS: Piperacil/Tazobactam 3.375 GM/50 ML ML IV ×2 (13:56→21:41)
[2024-06-21 15:06] LABS: Ferritin 103 ng/mL (37-417); Iron 14 ug/dL (65-175); Iron Binding Capacity,Unsat 205 ug/dL (228-428)
[2024-06-21 15:08] LABS: Iron Binding Capacity,Total 219 ug/dL (250-450); PERCENT IRON SATURATION 6.4 % (9-55)
[2024-06-22] VITALS (9 sets, daily range): BP systolic 139–158; BP diastolic 64–81; PULSE 78–98; RESP 18–20; TEMP 36.6–37.3; O2SAT 93–100
[2024-06-22] MEDS: Piperacil/Tazobactam 3.375 GM/50 ML ML IV (05:22)
[2024-06-22] MEDS: 0.9% Normal Saline (250mL Bag) 250 ML 15 ML IV (05:25)
[2024-06-22] MEDS: Ipratropium/Albuterol Sulfate 3 ML AMPUL.NEB INHALATION ×3 (06:31→20:50)
[2024-06-22 06:35] LABS: Absolute Lymphocyte Count 1.47 X10^3/uL (0.83-4.51); Absolute Neutrophil Count 5.9 X10^3/uL (2.0-7.7); Basophil# 0.01 X10^3/uL; Basophil% 0.1 % (0-1); Eosinophil# 0.01 X10^3/uL; Eosinophils% 0.1 % (0-5); Hematocrit 29.9 % (40-54); Hemoglobin 9.8 g/dL (13.0-16.5); Lymphocyte # 1.47 X10^3/ul (0.83-4.51); Lymphocyte % 18.4 % (19-41); Mean Corp Hgb Conc 32.8 g/dL (32-36); Mean Corpuscular Hgb 29.4 pg (27.0-32.0); Mean Corpuscular Volume 89.8 fL (80-94); Mean Platelet Vol. 10.9 fl (6.2-12.0); Monocyte# 0.55 X10^3/uL; Monocyte% 6.9 % (0-10); NRBC Flagged by Analyzer 0 % (0-5); Platelet Count 158 K/mm3 (150-450); RBC Distribution Width CV 12.6 % (11.6-14.6); RBC Distribution Width SD 41.1 fl (35.1-43.9); Red Blood Count 3.33 M/mm3 (4.6-6.2)
[2024-06-22 07:07] LABS: Anion Gap 10 (5-15); BUN 19 mg/dL (4-19); BUN/Creat Ratio 19.1 RATIO (10-20); Calcium,Total 8.3 mg/dL (7.6-11.0); Carbon Dioxide 21.2 mmol/L (21.0-32.0); Chloride 119 mmol/L (98-108); Creatinine, Serum 0.99 mg/dL (0.70-1.20); EST Glomerular Filtration Rate 85 (>60); Estimated Creatinine Clearance 60.08 ml/min (50-250); Glucose 99 mg/dL (70-99); Potassium 3.6 mmol/L (3.3-5.1); Sodium Level 150 mmol/L (133-145)
--- NOTE | 2024-06-22 09:24 | PN_ITS ---
Subjective Subjective Patient seen and examined. He remains nonverbal so unable to do review of systems. He has remained hemodynamically stable. Hb today is 9.8, and iron profile showed severe iron deficiency anemia. Sodium is also up to 150. Objective Data Objective Data Vital Signs: Vital Signs Temp Pulse Resp BP Pulse Ox O2 Del Method O2 Flow Rate 98.6 F 98 20 H 139/73 H 93 Room Air 2 06/22/24 03:50 06/22/24 06:32 06/22/24 06:32 06/22/24 03:50 06/22/24 06:32 06/22/24 08:49 06/21/24 08:48 FiO2 96 06/20/24 16:18 Oxygen Flow Rate (L/min) 2 Oxygen Delivery Method Room Air Weight: 125 lb 14.143 oz Body Mass Index (BMI) 20.9 Intake & Output: Intake and Output for Last 24 Hours 06/20/24 06/21/24 06/22/24 23:59 23:59 23:59 Intake Total 1100 / 1100 4217.58 / 4217.58 404.83 / 404.83 Output Total 1650 / 1650 200 / 200 Balance 1100 / 1100 2567.58 / 2567.58 204.83 / 204.83 Lab / Micro Data 06/22/24 06:20 06/22/24 06:20 Labs: Laboratory Results - last 24 hr 06/21/24 05:16: Iron 14 L, TIBC 219 L, Iron Saturation 6.4 L, Unsaturated IBC 205 L, Ferritin 103 06/22/24 06:20: WBC 8.0, RBC 3.33 L, Hgb 9.8 L, Hct 29.9 L, MCV 89.8, MCH 29.4, MCHC 32.8, RDW Std Deviation 41.1, RDW Coeff of Usha 12.6, Plt Count 158, MPV 10.9, Immature Gran % (Auto) 0.500, Neut % (Auto) 74.0 H, Lymph % (Auto) 18.4 L, [place] % (Auto) 6.9, Eos % (Auto) 0.1, Baso % (Auto) 0.1, Absolute Neuts (auto) 5.9, Absolute Lymphs (auto) 1.47, Nucleated RBC % 0, Sodium 150 H, Potassium 3.6, Chloride 119 H, Carbon Dioxide 21.2, Anion Gap 10, BUN 19, Creatinine 0.99, Estim Creat Clear Calc 60.08, Est GFR (MDRD) Non-Af 85, BUN/Creatinine Ratio 19.1, Glucose 99, Calcium 8.3 Micro: Microbiology 06/21/24 08:50 Stool Stool Occult Blood (LORI) - Final Occult Blood Positive 06/21/24 12:14 Urine, Random Legionella Antigen - Final 06/21/24 12:14 Interface Orders Streptococcus pneumoniae Antigen (M - Final 06/20/24 20:25 Mucosa - Nasopharyngeal Respiratory Panel (PCR) - Final 06/20/24 14:50 Mucosa - Nose SARS-CoV-2, Influenza & RSV (PCR) - Final Radiography Diagnostic Testing: Radiology Impression Echocardiogram 06/21/24 05:55 Interpretation Summary The estimated ejection fraction is 55-60 %. Normal LV systolic function No significant valvular abnormality No previous echo to compare. Ordering Physician: Anamaria Ghotra Referring Physician: SHAQ YANG Performed By: Rebeka Brown RCS Rhythm Strip Rhythm Strip: Sinus Tach Rate: 140 Ectopy: None Physical Exam Const alert Constitutional Narrative: nonverbal, restless General Appearance: uncooperative HEENT normocephalic and head/scalp atraumatic Eyes PERRL, EOMs intact bilaterally and conjunctivae normal Neck no lymphadenopathy and supple Lymph Lymphatic: no lymphadenopathy noted Resp Resp Narrative: Mildly diminished breath sounds bibasilarly. No wheezes or crackles. on room air. Cardio regular rate, regular rhythm, S1 normal heart sound, S2 normal heart sound and no murmurs GI normal to inspection, nondistended, normoactive bowel sounds, soft to palpation, non-tender and non-distended GI Narrative: has a Marky tube in situ Extremity Extremity Narrative: Has chronic contractures of both upper extremities and lower extremities. Neuro Neuro Narrative: Patient confused, restless Sensorium / Orientation: awake and alert Motor Exam: general weakness Psych Psych Narrative: confused. Assessment & Plan Assessment/Plan (1) History of cerebral palsy: (2) Aspiration pneumonia: (3) Hypoxia: (4) Sepsis: PLAN: Plan #SIRS criteria due to probable aspiration pneumonia * now on room air. * Chest x-ray showed no acute cardiopulmonary pathology and showed bibasilar atelectasis and gaseous distention of the stomach * tachycardia has improved. HR is 98 this morning. * on IV Zosyn. COVID, RSV and flu screen negative * blood cultures still pending. * Titrate oxygen as needed to maintain saturation above 90%. * CTA chest was negative for any evidence of PE and showed no acute cardiopulmonary findings. * #Hypoxia: * Due to probable aspiration pneumonia. Management as above. * resolved. Now on 2L of oxygen. #Coffee-ground emesis * Patient had coffee-ground emesis the day of admission. This has not recurred. * Hb was 13.7 on admission and is now down to 9.8 today. * Iron profile shows iron deficiency anemia. Stool for occult blood is positive. * Will switch pantoprazole drip to IV pantoprazole 40 mg twice daily. Gastroenterology consulted. * * #Hypernatremia: * Na is further up to 150 today. * Will give D5 water infusion and trend sodium levels. #History of cerebral palsy with contractures of upper and lower extremities. PT OT on board. On baclofen. On sertraline #History of seizure disorder: On Keppra DVT prophylaxis:SCDs. Lovenox dc'd due to GI bleed CODE STATUS: Paperwork from correction shows patient is DNR CCA no intubation. Charges/Coding Visit Charges Inpatient E&M: 19065 Subs Hosp L3
[2024-06-22] MEDS: Dextrose 5%-Water (1000mL Bag) 1,000 ML 125 ML IV ×2 (09:34→17:37)
[2024-06-22] MEDS: Acetaminophen 650 MG Suppository RC ×2 (09:38→18:40)
[2024-06-22] MEDS: Pantoprazole Sodium 40 MG in 0.9% Normal Saline (100mL MB+) 100 ML 330 MG IV ×2 (09:38→20:14)
[2024-06-22] MEDS: levETIRAcetam IV 250 MG in 0.9% Normal Saline (100mL Bag) 100 ML 410 MG IV ×2 (10:32→20:13)
[2024-06-22 12:23] LABS: Vancomycin, Trough Level 16.4 ug/mL (5.0-15.0)
[2024-06-22] MEDS: Vancomycin HCl 750 MG in 0.9% Normal Saline (250mL Bag) 250 ML 250 MG IV (13:37)
[2024-06-22] MEDS: Morphine 2 MG/ML Syringe IV ×2 (15:03→20:14)
[2024-06-22] MEDS: 0.9% Saline Lock 10 ML Syringe IV (15:03)
[2024-06-22] MEDS: Piperacil/Tazobactam 3.375 GM in 0.9% Normal Saline (50mL MB+) 50 ML IV ×2 (15:09→21:56)
--- NOTE | 2024-06-22 17:21 | PCM.RX.CS ---
Consult Antibiotic Management Pharmacy has been consulted to manage selected antibiotic: Vancomycin Type of Intervention Type of Consult: Follow-up Suspected Infection Suspected Infection: Pneumonia Labs Labs: Sodium 150 mmol/L (133-145) H 06/22/24 06:20 Potassium 3.6 mmol/L (3.3-5.1) 06/22/24 06:20 Chloride 119 mmol/L (98-108) H 06/22/24 06:20 Carbon Dioxide 21.2 mmol/L (21.0-32.0) 06/22/24 06:20 Anion Gap 10 (5-15) 06/22/24 06:20 BUN 19 mg/dL (4-19) 06/22/24 06:20 Creatinine 0.99 mg/dL (0.70-1.20) 06/22/24 06:20 Est GFR (MDRD) Non-Af 85 (>60) 06/22/24 06:20 BUN/Creatinine Ratio 19.1 RATIO (10-20) 06/22/24 06:20 Glucose 99 mg/dL (70-99) 06/22/24 06:20 Vancomycin Trough 16.4 ug/mL (5.0-15.0) H 06/22/24 11:40 Microbiology Microbiology: Microbiology 06/21/24 08:50 Stool Stool Occult Blood (LORI) - Final Occult Blood Positive 06/21/24 12:14 Urine, Random Legionella Antigen - Final 06/21/24 12:14 Interface Orders Streptococcus pneumoniae Antigen (M - Final 06/20/24 20:25 Mucosa - Nasopharyngeal Respiratory Panel (PCR) - Final 06/20/24 14:50 Mucosa - Nose SARS-CoV-2, Influenza & RSV (PCR) - Final Goal Trough Goal Trough: 15-20 mcg/mL Pharmacy Plan for Drug Dosing Pharmacy Plan for Drug Dosing: VANCOMYCIN LEVEL RECEIVED Current Vancomycin Dose: 750mg q12h (00,12) Number of Doses Received: x1 1500mg loading dose, x2 750mg doses Vancomycin Level: 16.4 (drawn 06/22/24 at 1140) Hours Since Last Dose: 12 hours since last 750mg dose on 06/21/24 at 2352 Renal Function: SrCr 0.99 Renal Function Trend: SrCr stable Lab/Micro: Vancomycin Plan/Comments: resulted trough of 16.4 is within the ordered goal trough range of 15-20. recommend continuing current dose of 750mg q12h and checking a trough in 4 doses Pending Level: 06/23/24 at 2330 Pharmacy Service will continue to monitor and adjust dosing as required. Follow-Up Labs Follow-Up Labs: Trough: Vancomycin (06/23/24 at 2330)
--- NOTE | 2024-06-22 17:39 | CON.PCM.GI_ITS ---
HPI Consult Data Date of Consult: 06/22/24 HPI Narrative Reason for Consultation: GI bleed HPI Narrative: MONISHA SHAW, is a 63 M who presents Patient with emesis immediately upon transition from [place] to [place]U. Noted to be coffee ground in appearance. Will guiac contents, given ongoing N/V with aspiration concerns will place NGT to LIWS, will obtain serial HH, will d/c lovenox until assure no GI bleed, will start protonix also until assure no GI bleed. [facility] Medical History History of gastrostomy tube placement Cardiomegaly Home Medications ?Medication ?Instructions ?Recorded ?Last Taken ?Type acetaminophen 325 mg capsule 650 mg PO Q6H PRN fever o r pain 05/26/21 Unknown History (Tylenol) acetaminophen 325 mg capsule 975 mg PO BID pain and fe dai 05/26/21 Unknown History (Tylenol) alprazolam 0.5 mg tablet 0.5 mg PO DAILY PRN anxiety 05/26/21 Unknown History guaifenesin 100 mg/5 mL oral liquid 200 mg PO Q4H PRN cough 05/26/21 Unknown History loratadine 10 mg capsule 10 mg PO DAILY allergy 05/26 Unknown History polyethylene glycol 3350 17 17 g feeding tube DAILY Unknown History gram/dose oral powder (Miralax) constipation propylene glycol 0.6 % eye drops 1 drp ophthalmic (eye ) TID PRN dry 11/30/22 Unknown History (Systane Complete) eye(s) sertraline 100 mg tablet 100 mg PO DAILY depression 1 Unknown History baclofen 10 mg tablet 10 mg .Route .COMPLEX spasci ty #90 07/26/23 Unknown Rx tabs gkwvvdfgauaybai-ctwiuohixblwdzg-LZ 5 ml PO Q4-6H PRN b ronchitis 05/29/24 Unknown History 2 mg-30 mg-10 mg/5 mL oral syrup dextran 70-hypromellose 0.1 %-0.3 1 drp ophthalmic (ey e) QHS PRN dry 05/29/24 Unknown History % eye drops (GenTeal Tears Mild) eye(s) lactose-reduced food with fiber 120 ml feeding tube TI D feeding 05/29/24 Unknown History 0.06 gram-1.5 kcal/mL oral liquid (Jevity 1.5 Raymundo) white petrolatum-mineral oil 56.8 1 applic ophthalmic (eye) QHS dry 05/29/24 Unknown History %-42.5 % eye ointment (Refresh eye Lacri-Lube) levetiracetam 250 mg tablet 250 mg PO Q12H seizure 04/15 Unknown History Allergy/AdvReac Type Severity Reaction Status Date / Time tuberculin,PPD,multi-puncture Allergy Unknown unknown Verified 06/20/24 14:18 Social History Smoking Status: Never smoker second hand exposure: No alcohol intake: never substance use type: does not use seatbelt use: always Lab / Micro Data 06/22/24 06:20 06/22/24 06:20 Labs: Laboratory Results - last 24 hr 06/22/24 06:20: WBC 8.0, RBC 3.33 L, Hgb 9.8 L, Hct 29.9 L, MCV 89.8, MCH 29.4, MCHC 32.8, RDW Std Deviation 41.1, RDW Coeff of Usha 12.6, Plt Count 158, MPV 10.9, Immature Gran % (Auto) 0.500, Neut % (Auto) 74.0 H, Lymph % (Auto) 18.4 L, [place] % (Auto) 6.9, Eos % (Auto) 0.1, Baso % (Auto) 0.1, Absolute Neuts (auto) 5.9, Absolute Lymphs (auto) 1.47, Nucleated RBC % 0, Sodium 150 H, Potassium 3.6, Chloride 119 H, Carbon Dioxide 21.2, Anion Gap 10, BUN 19, Creatinine 0.99, Estim Creat Clear Calc 60.08, Est GFR (MDRD) Non-Af 85, BUN/Creatinine Ratio 19.1, Glucose 99, Calcium 8.3 06/22/24 11:40: Vancomycin Trough 16.4 H Micro: Microbiology 06/21/24 08:50 Stool Stool Occult Blood (LORI) - Final Occult Blood Positive Rhythm Strip Rhythm Strip: Sinus Tach Rate: 140 Ectopy: None
--- NOTE | 2024-06-22 17:39 | EX.PCM.CON.G ---
HPI Consult Data Date of Consult: 06/22/24 HPI Narrative Reason for Consultation: GI bleed HPI Narrative: MONISHA SHAW, is a 63 M who presents from extended-care facility with multiple episodes of coffee-ground emesis. He is high resident in a longterm and is aphasic at baseline. He was brought in from his longterm on account of shortness of breath and coughing. History is from the chart and nursing staff. He was also coughing. Patient was also noted to be febrile. Vitals in the ED at time of review were temperature of 102.5 Fahrenheit, pulse rate of 128 and blood pressure of 144/86. He was saturating at 99% on 2 L of oxygen. CBC showed WBC of 8.5 with hemoglobin of 13.7 and platelets of 198. Lactic acid was 2.3. CXR showed low lung volumes with no focal consolidation and bibasilar atelectasis. He is being admitted to be managed for hypoxia due to sepsis from probable aspiration pneumonia. Patient started desatting after multiple episodes of vomiting and was being transferred [facility] to [facility] care unit. There was attempt to place NG tube but it was unsuccessful. Some contents were aspirated from his PEG tube and it was coffee-ground in content. His stool was also checked and there were positive for blood. Currently his hemoglobin dropped down to 8.9 from 13.7. [facility] Medical History History of gastrostomy tube placement Cardiomegaly Home Medications ?Medication ?Instructions ?Recorded ?Last Taken ?Type acetaminophen 325 mg capsule 650 mg PO Q6H PRN fever or pain 05/26/21 Unknown History (Tylenol) acetaminophen 325 mg capsule 975 mg PO BID pain and fever 05/26/21 Unknown History (Tylenol) alprazolam 0.5 mg tablet 0.5 mg PO DAILY PRN anxiety 05/26/21 Unknown History guaifenesin 100 mg/5 mL oral liquid 200 mg PO Q4H PRN cough 05/26/21 Unknown History loratadine 10 mg capsule 10 mg PO DAILY allergy 05/26/21 Unknown History polyethylene glycol 3350 17 17 g feeding tube DAILY 05/26/21 Unknown History gram/dose oral powder (Miralax) constipation propylene glycol 0.6 % eye drops 1 drp ophthalmic (eye) TID PRN dry 11/30/22 Unknown History (Systane Complete) eye(s) sertraline 100 mg tablet 100 mg PO DAILY depression 11/30/22 Unknown History baclofen 10 mg tablet 10 mg .Route .COMPLEX spascity #90 07/26/23 Unknown Rx tabs yebazsdqhtjbvwj-awnuboyisspsvne-NS 5 ml PO Q4-6H PRN bronchitis 05/29/24 Unknown History 2 mg-30 mg-10 mg/5 mL oral syrup dextran 70-hypromellose 0.1 %-0.3 1 drp ophthalmic (eye) QHS PRN dry 05/29/24 Unknown History % eye drops (GenTeal Tears Mild) eye(s) lactose-reduced food with fiber 120 ml feeding tube TID feeding 05/29/24 Unknown History 0.06 gram-1.5 kcal/mL oral liquid (Jevity 1.5 [place]ndo) white petrolatum-mineral oil 56.8 1 applic ophthalmic (eye) QHS dry 05/29/24 Unknown History %-42.5 % eye ointment (Refresh eye Lacri-Lube) levetiracetam 250 mg tablet 250 mg PO Q12H seizure 06/20/24 Unknown History Allergy/AdvReac Type Severity Reaction Status Date / Time tuberculin,PPD,multi-puncture Allergy Unknown unknown Verified 06/20/24 14:18 Social History Smoking Status: Never smoker second hand exposure: No alcohol intake: never substance use type: does not use seatbelt use: always ROS Constitutional Constitutional: Denies fatigue, fever(s), poor appetite, weight gain or weight loss Gastrointestinal Gastrointestinal: Denies belching, bloating, change in bowel habits, change in stool character, chewing difficulty, coffee ground emesis, constipation, cramping, diarrhea, dyspepsia, dysphagia, early satiety, excessive flatus, fecal incontinence, heartburn, hematemesis, hematochezia, hemorrhoids, loose stools, melena, nausea, odynophagia, rectal bleeding, tenesmus, vomiting or weight changes Physical Exam Const alert Constitutional Narrative: nonverbal, restless General Appearance: uncooperative HEENT normocephalic and head/scalp atraumatic Eyes PERRL, EOMs intact bilaterally and conjunctivae normal Neck no lymphadenopathy and supple Lymph Lymphatic: no lymphadenopathy noted Resp Resp Narrative: Mildly diminished breath sounds bibasilarly. No wheezes or crackles. on room air. Cardio regular rate, regular rhythm, S1 normal heart sound, S2 normal heart sound and no murmurs GI normal to inspection, nondistended, normoactive bowel sounds, soft to palpation, non-tender and non-distended GI Narrative: has a Marky tube in situ Extremity Extremity Narrative: Has chronic contractures of both upper extremities and lower extremities. Neuro Neuro Narrative: Patient confused, restless Sensorium / Orientation: awake Psych Psych Narrative: confused. Lab / Micro Data 06/22/24 06:20 06/22/24 06:20 Labs: Laboratory Results - last 24 hr 06/22/24 06:20: WBC 8.0, RBC 3.33 L, Hgb 9.8 L, Hct 29.9 L, MCV 89.8, MCH 29.4, MCHC 32.8, RDW Std Deviation 41.1, RDW Coeff of Usha 12.6, Plt Count 158, MPV 10.9, Immature Gran % (Auto) 0.500, Neut % (Auto) 74.0 H, Lymph % (Auto) 18.4 L, Schleicher % (Auto) 6.9, Eos % (Auto) 0.1, Baso % (Auto) 0.1, Absolute Neuts (auto) 5.9, Absolute Lymphs (auto) 1.47, Nucleated RBC % 0, Sodium 150 H, Potassium 3.6, Chloride 119 H, Carbon Dioxide 21.2, Anion Gap 10, BUN 19, Creatinine 0.99, Estim Creat Clear Calc 60.08, Est GFR (MDRD) Non-Af 85, BUN/Creatinine Ratio 19.1, Glucose 99, Calcium 8.3 06/22/24 11:40: Vancomycin Trough 16.4 H Micro: Microbiology 06/21/24 08:50 Stool Stool Occult Blood (LORI) - Final Occult Blood Positive Rhythm Strip Rhythm Strip: Sinus Tach Rate: 140 Ectopy: None Assessment & Plan Assessment/Plan (1) History of cerebral palsy: (2) Aspiration pneumonia: (3) Hypoxia: (4) Sepsis: (5) GI bleed: PLAN: Plan 63-year-old with history of cerebral palsy and seizure disorder who is totally PEG dependent presents with multiple episodes of nausea vomiting with the aspiration ammonia. All signs of infection have been ruled out via blood work, repeat imaging. He is also not requiring any supplemental oxygen at this time. However with multiple episodes of nausea vomiting and decreasing hemoglobin along with gastric contents positive for blood and stool positive for blood he should undergo an upper endoscopy to evaluate his upper GI tract. He may need colonoscopy in the future due to his iron deficiency anemia depending on what we find in his upper GI tract and how he responds to iron replacement. His power of defense attorney was explained alternatives, risk and benefits include not withstanding bleeding, infection, sepsis, perforation, need for surgery . He will have an ASA of 3 before the procedure. Charges/Coding Visit Charges Inpatient E&M: 61970 Init Hosp L3
[2024-06-22] MEDS: Petrolatum,White 3.75GM OPTH.TUBE 1 APPLIC OPHTHALMIC (20:13)
[2024-06-23] VITALS (15 sets, daily range): BP systolic 118–160; BP diastolic 57–88; PULSE 62–104; RESP 16–20; TEMP 36.2–37; O2SAT 94–100
[2024-06-23] MEDS: Vancomycin HCl 750 MG in 0.9% Normal Saline (250mL Bag) 250 ML 250 MG IV ×2 (00:04→11:28)
[2024-06-23] MEDS: 0.9% Saline Lock 10 ML Syringe IV ×2 (00:05→05:08)
--- NOTE | 2024-06-23 00:43 | NURSING ---
Telephone update given to Aline:Pt Legal guardian. discussed Dr. Ariza' plan to perform upper GI scope tomorrow, due to possible blood in stomach and dropping Hgb results. MD has not directly communicated with this individual, verbal signed consent was not officially obtained, although, Aline dis verbalize she would consent to this procedure and will be awaiting call from MD in the AM. All questions answered to best for this writers ability. Support and education provided. No additional needs or concerns verbalized or identified.
[2024-06-23] MEDS: Morphine 2 MG/ML Syringe IV ×3 (02:16→16:54)
[2024-06-23] MEDS: Piperacil/Tazobactam 3.375 GM in 0.9% Normal Saline (50mL MB+) 50 ML IV ×3 (05:04→23:13)
[2024-06-23] MEDS: 0.9% Normal Saline (250mL Bag) 250 ML 15 ML IV (05:11)
[2024-06-23 07:03] LABS: Absolute Neutrophil Count 4.8 X10^3/uL (2.0-7.7); Basophil# 0.01 X10^3/uL; Basophil% 0.1 % (0-1); Eosinophil# 0.08 X10^3/uL; Eosinophils% 1.1 % (0-5); Hematocrit 28.3 % (40-54); Hemoglobin 9.5 g/dL (13.0-16.5); Lymphocyte % 25.7 % (19-41); Mean Corp Hgb Conc 33.6 g/dL (32-36); Mean Corpuscular Hgb 29.4 pg (27.0-32.0); Mean Corpuscular Volume 87.6 fL (80-94); Mean Platelet Vol. 11.3 fl (6.2-12.0); Monocyte# 0.57 X10^3/uL; Monocyte% 7.7 % (0-10); NRBC Flagged by Analyzer 0 % (0-5); Neutrophil # 4.82 X10^3/uL (2.7-7.7); Neutrophil % 65.1 % (47-70); Platelet Count 168 K/mm3 (150-450); RBC Distribution Width CV 12.3 % (11.6-14.6); RBC Distribution Width SD 39.8 fl (35.1-43.9); Red Blood Count 3.23 M/mm3 (4.6-6.2); White Blood Count 7.4 K/mm3 (4.4-11.0)
[2024-06-23] MEDS: Ipratropium/Albuterol Sulfate 3 ML AMPUL.NEB INHALATION ×3 (07:35→20:01)
[2024-06-23] MEDS: levETIRAcetam IV 250 MG in 0.9% Normal Saline (100mL Bag) 100 ML 410 MG IV ×2 (08:34→22:27)
[2024-06-23 09:13] LABS: Anion Gap 9 (5-15); BUN 11 mg/dL (4-19); BUN/Creat Ratio 12.3 RATIO (10-20); Calcium,Total 8.2 mg/dL (7.6-11.0); Carbon Dioxide 21.3 mmol/L (21.0-32.0); Chloride 115 mmol/L (98-108); Creatinine, Serum 0.88 mg/dL (0.70-1.20); EST Glomerular Filtration Rate 95 (>60); Estimated Creatinine Clearance 67.59 ml/min (50-250); Glucose 97 mg/dL (70-99); Potassium 3.2 mmol/L (3.3-5.1); Sodium Level 146 mmol/L (133-145)
--- NOTE | 2024-06-23 09:19 | PCM.PROGNOTE ---
Subjective Subjective P Objective Data Objective Data Vital Signs: Vital Signs Temp Pulse Resp BP Pulse Ox O2 Del Method O2 Flow Rate 97.4 F L 104 H 20 H 135/88 H 95 Room Air 2 06/23/24 08:21 06/23/24 08:21 06/23/24 08:21 06/23/24 08:21 06/23/24 08:21 06/23/24 08:21 06/21/24 08:48 FiO2 96 06/20/24 16:18 Oxygen Flow Rate (L/min) 2 Oxygen Delivery Method Room Air Weight: 125 lb 14.143 oz Body Mass Index (BMI) 20.9 Intake & Output: Intake and Output for Last 24 Hours 06/21/24 06/22/24 06/23/24 23:59 23:59 23:59 Intake Total 4217.58 / 4217.58 2444.83 / 2444.83 1315 / 1315 Output Total 1650 / 1650 800 / 900 400 / 400 Balance 2567.58 / 2567.58 1644.83 / 1544.83 915 / 915 Lab / Micro Data 06/23/24 06:36 06/23/24 06:36 Labs: Laboratory Results - last 24 hr 06/22/24 11:40: Vancomycin Trough 16.4 H 06/23/24 06:36: WBC 7.4, RBC 3.23 L, Hgb 9.5 L, Hct 28.3 L, MCV 87.6, MCH 29.4, MCHC 33.6, RDW Std Deviation 39.8, RDW Coeff of Usha 12.3, Plt Count 168, MPV 11.3, Immature Gran % (Auto) 0.300, Neut % (Auto) 65.1, Lymph % (Auto) 25.7, Ritchie % (Auto) 7.7, Eos % (Auto) 1.1, Baso % (Auto) 0.1, Absolute Neuts (auto) 4.8, Absolute Lymphs (auto) 1.90, Nucleated RBC % 0, Sodium 146 H, Potassium 3.2 L, Chloride 115 H, Carbon Dioxide 21.3, Anion Gap 9, BUN 11, Creatinine 0.88, Estim Creat Clear Calc 67.59, Est GFR (MDRD) Non-Af 95, BUN/Creatinine Ratio 12.3, Glucose 97, Calcium 8.2 Micro: Microbiology 06/20/24 22:04 Blood Culture (Wb) - Anticubital Right Blood Culture - Preliminary No growth in 48 hours. 06/20/24 19:50 Blood Culture (Wb) - Left Forearm Blood Culture - Preliminary No growth in 48 hours. 06/21/24 08:50 Stool Stool Occult Blood (LORI) - Final Occult Blood Positive 06/21/24 12:14 Urine, Random Legionella Antigen - Final 06/21/24 12:14 Interface Orders Streptococcus pneumoniae Antigen (M - Final 06/20/24 20:25 Mucosa - Nasopharyngeal Respiratory Panel (PCR) - Final 06/20/24 14:50 Mucosa - Nose SARS-CoV-2, Influenza & RSV (PCR) - Final Rhythm Strip Rhythm Strip: Sinus Tach Rate: 140 Ectopy: None
--- NOTE | 2024-06-23 09:32 | PN_ITS ---
Subjective Subjective Patient seen and examined. He is alert and mumbling coherently. Unable to do review of systems. Gastroenterology consulted. Awaiting recommendations. Hb today is 9.5. Objective Data Objective Data Vital Signs: Vital Signs Temp Pulse Resp BP Pulse Ox O2 Del Method O2 Flow Rate 97.4 F L 104 H 20 H 135/88 H 95 Room Air 2 06/23/24 08:21 06/23/24 08:21 06/23/24 08:21 06/23/24 08:21 06/23/24 08:21 06/23/24 08:21 06/21/24 08:48 FiO2 96 06/20/24 16:18 Oxygen Flow Rate (L/min) 2 Oxygen Delivery Method Room Air Weight: 125 lb 14.143 oz Body Mass Index (BMI) 20.9 Intake & Output: Intake and Output for Last 24 Hours 06/21/24 06/22/24 06/23/24 23:59 23:59 23:59 Intake Total 4217.58 / 4217.58 2444.83 / 2444.83 1467.5 / 1467.5 Output Total 1650 / 1650 800 / 900 400 / 400 Balance 2567.58 / 2567.58 1644.83 / 1544.83 1067.5 / 1067.5 Lab / Micro Data 06/23/24 06:36 06/23/24 06:36 Labs: Laboratory Results - last 24 hr 06/22/24 11:40: Vancomycin Trough 16.4 H 06/23/24 06:36: WBC 7.4, RBC 3.23 L, Hgb 9.5 L, Hct 28.3 L, MCV 87.6, MCH 29.4, MCHC 33.6, RDW Std Deviation 39.8, RDW Coeff of Usha 12.3, Plt Count 168, MPV 11.3, Immature Gran % (Auto) 0.300, Neut % (Auto) 65.1, Lymph % (Auto) 25.7, Glades % (Auto) 7.7, Eos % (Auto) 1.1, Baso % (Auto) 0.1, Absolute Neuts (auto) 4.8, Absolute Lymphs (auto) 1.90, Nucleated RBC % 0, Sodium 146 H, Potassium 3.2 L, Chloride 115 H, Carbon Dioxide 21.3, Anion Gap 9, BUN 11, Creatinine 0.88, Estim Creat Clear Calc 67.59, Est GFR (MDRD) Non-Af 95, BUN/Creatinine Ratio 12.3, Glucose 97, Calcium 8.2 Micro: Microbiology 06/20/24 22:04 Blood Culture (Wb) - Anticubital Right Blood Culture - Preliminary No growth in 48 hours. 06/20/24 19:50 Blood Culture (Wb) - Left Forearm Blood Culture - Preliminary No growth in 48 hours. 06/21/24 08:50 Stool Stool Occult Blood (LORI) - Final Occult Blood Positive 06/21/24 12:14 Urine, Random Legionella Antigen - Final 06/21/24 12:14 Interface Orders Streptococcus pneumoniae Antigen (M - Final 06/20/24 20:25 Mucosa - Nasopharyngeal Respiratory Panel (PCR) - Final 06/20/24 14:50 Mucosa - Nose SARS-CoV-2, Influenza & RSV (PCR) - Final Rhythm Strip Rhythm Strip: Sinus Tach Rate: 140 Ectopy: None Physical Exam Const alert Constitutional Narrative: nonverbal, restless, mumbling incoherently General Appearance: uncooperative HEENT normocephalic and head/scalp atraumatic Eyes PERRL, EOMs intact bilaterally and conjunctivae normal Neck no lymphadenopathy and supple Lymph Lymphatic: no lymphadenopathy noted Resp Resp Narrative: Mildly diminished breath sounds bibasilarly. No wheezes or crackles. on room air. Cardio regular rate, regular rhythm, S1 normal heart sound, S2 normal heart sound and no murmurs GI normal to inspection, nondistended, normoactive bowel sounds, soft to palpation, non-tender and non-distended GI Narrative: has a Marky tube in situ Extremity Extremity Narrative: Has chronic contractures of both upper extremities and lower extremities. Neuro Neuro Narrative: Patient confused, restless Sensorium / Orientation: awake and alert Motor Exam: general weakness Psych Psych Narrative: confused. Assessment & Plan Assessment/Plan (1) History of cerebral palsy: (2) Aspiration pneumonia: (3) Hypoxia: (4) Sepsis: PLAN: Plan #SIRS criteria due to probable aspiration pneumonia * now on room air. * Chest x-ray showed no acute cardiopulmonary pathology and showed bibasilar atelectasis and gaseous distention of the stomach * tachycardia is improving * on IV Zosyn and vancomycin. COVID, RSV and flu screen negative * blood culture negative after 48 hours * Titrate oxygen as needed to maintain saturation above 90%. * CTA chest was negative for any evidence of PE and showed no acute cardiopulmonary findings. * #Hypoxia: * Due to probable aspiration pneumonia. Management as above. * resolved. Now on 2L of oxygen. #Coffee-ground emesis * Patient had coffee-ground emesis the day of admission. This has not recurred. * Hb was 13.7 on admission and is now down to 9.5 today. * Iron profile shows iron deficiency anemia. Stool for occult blood is positive. * Will switch pantoprazole drip to IV pantoprazole 40 mg twice daily. Gastroenterology consulted. Awaiting recs * #Hypokalemia: K is 3.2. Will replace and trend. #Hypernatremia: * sodium is down to 146 today. Continue gentle hydration with D5W and trend. * Will give D5 water infusion and trend sodium levels. #History of cerebral palsy with contractures of upper and lower extremities. PT OT on board. On baclofen. On sertraline #History of seizure disorder: On Keppra DVT prophylaxis:SCDs. Lovenox dc'd due to GI bleed CODE STATUS: Paperwork from longterm shows patient is DNR CCA no intubation. Charges/Coding Visit Charges Inpatient E&M: 84982 Subs Hosp L2
[2024-06-23] MEDS: Pantoprazole Sodium 40 MG in 0.9% Normal Saline (100mL MB+) 100 ML 330 MG IV ×2 (09:54→21:33)
[2024-06-23] MEDS: Potassium Chloride 10mEq/100mL 10 MEQ/100 ML IV.SOLN. 100 MEQ IV BOLUS ×4 (12:23→16:54)
--- NOTE | 2024-06-23 13:19 | NURSING ---
Update given to Michelle, all questions answered at this time
--- NOTE | 2024-06-23 14:17 | PCM.PN.BLA ---
Progress Note Hemoglobin was 13.7 it is down to 9.5. He is unable to give a review of systems. Physical Exam Const alert Constitutional Narrative: nonverba General Appearance: uncooperative HEENT normocephalic and head/scalp atraumatic Eyes PERRL, EOMs intact bilaterally and conjunctivae normal Neck no lymphadenopathy and supple Lymph Lymphatic: no lymphadenopathy noted Resp Resp Narrative: Mildly diminished breath sounds bibasilarly. No wheezes or crackles. on room air. Cardio regular rate, regular rhythm, S1 normal heart sound, S2 normal heart sound and no murmurs GI normal to inspection, nondistended, normoactive bowel sounds, soft to palpation, non-tender and non-distended GI Narrative: has a Marky tube in situ Extremity Extremity Narrative: Has chronic contractures of both upper extremities and lower extremities. Neuro Neuro Narrative: Patient confused, restless Sensorium / Orientation: awake and alert Motor Exam: general weakness Psych Psych Narrative: confused. Assessment & Plan Assessment/Plan (1) History of cerebral palsy: (2) Aspiration pneumonia: (3) Hypoxia: (4) Sepsis: (5) GI bleed: PLAN: Plan 63-year-old with history of cerebral palsy and seizure disorder who is totally PEG dependent presents with multiple episodes of nausea vomiting with the aspiration ammonia. All signs of infection have been ruled out via blood work, repeat imaging. He is also not requiring any supplemental oxygen at this time. However with multiple episodes of nausea vomiting and decreasing hemoglobin along with gastric contents positive for blood and stool positive for blood he should undergo an upper endoscopy to evaluate his upper GI tract. He may need colonoscopy in the future due to his iron deficiency anemia depending on what we find in his upper GI tract and how he responds to iron replacement. His power of deputy county attorney was explained alternatives, risk and benefits include not withstanding bleeding, infection, sepsis, perforation, need for surgery . He will have an ASA of 3 before the procedure. Visit Charges Inpatient E&M: 66600 [facility] Hosp L3
--- NOTE | 2024-06-23 14:46 | PRE.ANES_ITS ---
ASA Classification* ASA Classification ASA Classification: 3 Assessment & Plan Anesthesia* Anesthesia Assessment Anesthesia Assessment: Discussed sedation and/or anesthesia options, risks, benefits, and alternatives with patient/parents/legal guardian/POA. Questions invited. The patient/parents/legal guardian/POA seems to understand and agrees to proceed with anesthesia plan. Reviewed the physical assessment, medical history, allergy history and patient home medications list prior to surgery/procedure/anesthetic and documented any changes. Performed airway and anesthesia risk assessments. Informed consent obtained via telephone with the patient's legal guardian at the phone number [phone]. Anesthesia Type Anesthesia Type: General History Source History Obtained from:: Chart and Parent/ Guardian Anesthesia Focused Assessment* Temperature: 97.9 F Pulse Rate: 84 Blood Pressure: 157/73 Respiratory Rate: 18 Pulse Ox: 97 Oxygen Flow Rate (L/min): 2 Fraction of Inspired Oxygen (FIO2): 96 Airway Assessment Mouth opens: >3 cm Mallampati Score: II Teeth Condition: Missing (edentulous) Neck Range of motion (ROM): Full ROM Focused Labs Anesthesia Preop lab: CBC WBC 7.4 K/mm3 (4.4-11.0) 06/23/24 06:36 06/23/24 RBC 3.23 M/mm3 (4.6-6.2) L 06/23/24 06:36 06/23/24 Hgb 9.5 g/dL (13.0-16.5) L 06/23/24 06:36 06/23/24 Hct 28.3 % (40-54) L 06/23/24 06:36 06/23/24 Plt Count 168 K/mm3 (150-450) 06/23/24 06:36 06/23/24 CHEMISTRY Potassium 3.2 mmol/L (3.3-5.1) L 06/23/24 06:36 06/23/24 Sodium 146 mmol/L (133-145) H 06/23/24 06:36 06/23/24 BUN 11 mg/dL (4-19) 06/23/24 06:36 06/23/24 Creatinine 0.88 mg/dL (0.70-1.20) 06/23/24 06:36 06/23/24 Glucose 97 mg/dL (70-99) 06/23/24 06:36 06/23/24 TSH 1.520 uIU/mL (0.300-4.200) 06/20/24 19:50 05/04/15 COAG Pre-Assessment Diagnosis/Proposed Procedure Planned Operative Procedure(s): EGD Anesthesia History 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 When Was Last Pacemaker Check QUESTION #4 FULL TEXT: You/Your Family Experience fever (hyperthermia) with Anesthesia Last Oral Intake Last Oral intake: Last Oral Intake NPO since Meds taken in AM with sips of water? 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 Has anyone observed you stop No 06/20/24 18:05 breathing during sleep? STOP Results Negative 06/20/24 18:05 QUESTION #5 FULL TEXT : Do you snore loudly (louder than talking or can be heard through closed doors)? 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 Specify any problems Hx of Preganancy in last 3 Months Nurse Filling Out Transfusion & Questions: Date: Time: Patient unable to answer at Yes 06/20/24 18:05 this time (ie. 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: /Reproductive Hx- carbon capture power plant operator Hx Now Gestational Age (in weeks): EDC: Hx Hx Para Hx Section SAB Active Medications Active Medications: Current Medications Generic Name Dose Route Start Last Admin Trade Name Freq PRN Reason Stop Dose Admin Acetaminophen 650 mg 06/20/24 17:45 Acetaminophen 325 Mg Tablet GT Q6H PRN PRN Pain 1-10 Or Fever >100.7 Acetaminophen 650 mg 06/21/24 00:46 06/22/24 18:40 Acetaminophen 650 Mg Suppository RC 650 mg Q4H PRN PRN Administration Fever, pain 1-10 Albuterol/Ipratropium 3 ml 06/22/24 01:15 06/23/24 12:55 Ipratropium/Albuterol Sulfate 3 Ml Ampul.Neb INHALATION 3 ml Q6HWA.RT CAIO Administration Alprazolam 0.5 mg 06/20/24 18:04 Alprazolam 0.5 Mg Tablet GT DAILY PRN anxiety Artificial Tears 2 drp 06/20/24 18:49 Carboxymethylcellulose Sodium 1 Drp Drops OPHTHALMIC TID PRN dry eye(s) Baclofen 10 mg 06/20/24 18:15 06/21/24 01:04 Baclofen 10 Mg Tablet GT Not Given TID CAIO Enteral Nutritional Formula 120 ml 06/20/24 22:00 06/21/24 00:15 Jevity 1.5. 1,000 Ml Bottle PO Not Given TID CAIO Glycerin/Hypromellose/Polyethylene 1 drp 06/20/24 18:48 Glycerin/Hypromellose/Rvo750 15 Ml Bottle EACH EYE QHS PRN dry eye(s) Guaifenesin 10 ml 05/02/25 18:04 Guaifenesin 10 Ml Udc (200mg/10ml) PO Q4H PRN cough Sodium Chloride 250 mls @ 15 mls/hr 06/20/24 19:37 06/23/24 12:59 IV Infused .[id number] PRN Infusion Saline Flush Sodium Chloride 250 mls @ 15 mls/hr 06/20/24 19:37 IV .[id number] PRN Additional IVPB Infusion Sodium Chloride 250 mls @ 15 mls/hr 06/20/24 20:06 IV .[id number] PRN Saline Flush Sodium Chloride 250 mls @ 15 mls/hr 06/20/24 20:06 IV .[id number] PRN Additional IVPB Infusion Vancomycin IV-PHARMACY TO DOSE 500 mls @ 250 mls/hr 06/20/24 22:31 1 each/ Sodium Chloride IV PRN PRN Rx to Dose Protocol Levetiracetam 250 mg/ Sodium 102.5 mls @ 410 mls/hr 06/21/24 01:30 06/23/24 09:24 Chloride IV Infused Q12 CAIO Infusion Vancomycin HCl 750 mg/ Sodium 265 mls @ 250 mls/hr 06/21/24 12:00 06/23/24 12:59 Chloride IV Infused Q12H CAIO Infusion Piperacillin Sod/Tazobactam 50 mls @ 12.5 mls/hr 06/22/24 14:00 06/23/24 13:10 Sod 3.375 gm/ Sodium Chloride IV 12.5 mls/hr Q8 CAIO Administration Pantoprazole Sodium 40 mg/ 110 mls @ 330 mls/hr 06/22/24 10:00 06/23/24 12:59 Sodium Chloride IV Infused Q12 CAIO Infusion Potassium Chloride 10 meq in 100 mls @ 100 mls/hr 06/23/24 11:00 06/23/24 14:05 IV BOLUS 06/23/24 14:59 100 mls/hr Q1H CAIO Administration Levetiracetam 250 mg 06/20/24 18:15 06/21/24 01:03 Levetiracetam 250 Mg Tablet GT Not Given Q12H CAIO Loratadine 10 mg 06/21/24 10:00 Loratadine 10 Mg Tablet GT DAILY CAIO Morphine Sulfate 2 - 4 mg 06/20/24 17:45 06/23/24 05:07 Morphine 2 Mg/Ml Syringe IV 4 mg Q3H PRN PRN Administration Pain Score 6-10 Multi-Ingredient Cream 1 applic 06/20/24 22:00 06/22/24 20:13 Petrolatum,White 3.75gm Opth.Tube OPHTHALMIC 1 drp QHS CAIO Administration Nitroglycerin 0.4 mg 06/20/24 17:45 Nitroglycerin (Inpatient Use) 0.4 Mg Tab.Subl SL Q5M PRN CARDIAC/CHEST PAIN Ondansetron HCl 4 mg 06/20/24 17:45 06/20/24 22:06 Ondansetron 4 Mg/2 Ml Vial IV 4 mg Q8H PRN PRN Administration NAUSEA/VOMITING Oxycodone HCl 5 mg 06/20/24 17:45 Oxycodone 5 Mg Tablet GT Q4H PRN PRN Pain Score 4-10 Polyethylene Glycol 17 gm 06/21/24 10:00 Polyethylene Glycol 3350 17 Gm Packet GT DAILY [facility] Sertraline HCl 100 mg 06/21/24 10:00 Sertraline 100 Mg Tablet GT DAILY [facility] Sodium Chloride 10 - 40 ml 06/20/24 19:37 06/23/24 05:08 0.9% Saline Lock 10 Ml Syringe IV 10 ml UD PRN Administration SALINE FLUSH Sodium Chloride 10 - 40 ml 06/20/24 20:06 06/21/24 01:10 0.9% Saline Lock 10 Ml Syringe IV 10 ml UD PRN Administration SALINE FLUSH Vancomycin Protocol 1 lab 06/23/24 22:30 Vancomycin Trough/Random Due 06/24/24 00:30 DAILY [facility] PFSH Medical History History of gastrostomy tube placement Cardiomegaly Home Medications ?Medication ?Instructions ?Recorded ?Last Taken ?Type acetaminophen 325 mg capsule 650 mg PO Q6H PRN fever o r pain 05/26/21 Unknown History (Tylenol) acetaminophen 325 mg capsule 975 mg PO BID pain and fe dai 05/26/21 Unknown History (Tylenol) alprazolam 0.5 mg tablet 0.5 mg PO DAILY PRN anxiety 05/26/21 Unknown History guaifenesin 100 mg/5 mL oral liquid 200 mg PO Q4H PRN cough 05/26/21 Unknown History loratadine 10 mg capsule 10 mg PO DAILY allergy 05/26 Unknown History polyethylene glycol 3350 17 17 g feeding tube DAILY Unknown History gram/dose oral powder (Miralax) constipation propylene glycol 0.6 % eye drops 1 drp ophthalmic (eye ) TID PRN dry 11/30/22 Unknown History (Systane Complete) eye(s) sertraline 100 mg tablet 100 mg PO DAILY depression 1 Unknown History baclofen 10 mg tablet 10 mg .Route .COMPLEX spasci ty #90 07/26/23 Unknown Rx tabs jbmhbqtwipkhloy-gxuiucfdkoshqig-HH 5 ml PO Q4-6H PRN b ronchitis 05/29/24 Unknown History 2 mg-30 mg-10 mg/5 mL oral syrup dextran 70-hypromellose 0.1 %-0.3 1 drp ophthalmic (ey e) QHS PRN dry 05/29/24 Unknown History % eye drops (GenTeal Tears Mild) eye(s) lactose-reduced food with fiber 120 ml feeding tube TI D feeding 05/29/24 Unknown History 0.06 gram-1.5 kcal/mL oral liquid (Jevity 1.5 Raymundo) white petrolatum-mineral oil 56.8 1 applic ophthalmic (eye) QHS dry 05/29/24 Unknown History %-42.5 % eye ointment (Refresh eye Lacri-Lube) levetiracetam 250 mg tablet 250 mg PO Q12H seizure 04/15 Unknown History Allergy/AdvReac Type Severity Reaction Status Date / Time tuberculin,PPD,multi-puncture Allergy Unknown unknown Verified 06/20/24 14:18 Social History Smoking Status: Never smoker second hand exposure: No alcohol intake: never substance use type: does not use seatbelt use: always Review of Systems (Anesthesia) ROS Narrative System reviewed and no additional complaints, except as documented. Physical Exam Const average body habitus Resp normal respiratory effort, normal air movement and clear to auscultation bilaterally Cardio regular rate, regular rhythm, no murmurs and diaphoretic
--- NOTE | 2024-06-23 15:26 | PCM.POST.ANE ---
Anesthesia: Postop Eval I Current Vital Signs Temperature: 98.1 F Pulse Rate: 88 Blood Pressure: 120/58 Respiratory Rate: 18 Pulse Ox: 96 Oxygen Delivery Method: Room Air Assessment Airway patent: Yes Spontaneous unlabored respirations: Yes Mental status: Awake and Calm nausea: No Vomiting: No Anesthesia Complication: No Fluid Hydration Crystalloid volume administer (ml): 200 Total IV fluid infused: 200 Progress Note Anesthesia document: Postop Eval 1 completed: Yes
--- NOTE | 2024-06-23 15:28 | OP.CCLET_ITS ---
06/23/2024 Tej Hernandez Do Re : Upper GI endoscopy procedure for Jose F Landeros Dear Dr. Hernandez This procedure was performed on Sunday, June 23, 2024. My impressions and recommendations are as follows: Impressions : - Normal esophagus. - No gross lesions in the entire stomach. - Gastrostomy present. - Normal examined duodenum. - No specimens collected. Recommendations : - Return patient to hospital lam for ongoing care. - Resume previous diet. - Continue present medications. My findings are described in the full procedure note, which is enclosed. If I can be of further assistance, please feel free to contact me at . Sincerely, Jeremy Bee, 06/23/2024 3:27:21 PM This report has been signed electronically.
--- NOTE | 2024-06-23 15:28 | OP.EGD_ITS ---
Patient Name: Jose F Landeros Procedure Date: 06/23/2024 3:00 PM Date of : 1960 Age: 63 Procedure: Upper GI endoscopy Indications: Iron deficiency anemia Providers: Jeremy Bee DO Medicines: Monitored Anesthesia Care Patient Profile: This is a 63 year old male. Refer to note in patient chart for documentation of history and physical. Patient has symptoms. Complications: No immediate complications. Procedure: Pre-Anesthesia Assessment: - Prior to the procedure, a History and Physical was performed, and patient medications and allergies were reviewed. The patient is competent. The risks and benefits of the procedure and the sedation options and risks were discussed with the patient. All questions were answered and informed consent was obtained. Patient identification and proposed procedure were verified by the physician in the pre-procedure area. Mental Status Examination: alert and oriented. Airway Examination: normal oropharyngeal airway and neck mobility. Respiratory Examination: clear to auscultation. CV Examination: normal. Prophylactic Antibiotics: The patient does not require prophylactic antibiotics. Prior Anticoagulants: The patient has taken no anticoagulant or antiplatelet agents. ASA Grade Assessment: III - A patient with severe systemic disease. After reviewing the risks and benefits, the patient was deemed in satisfactory condition to undergo the procedure. The anesthesia plan was to use monitored anesthesia care (MAC). Immediately prior to administration of medications, the patient was re-assessed for adequacy to receive sedatives. The heart rate, respiratory rate, oxygen saturations, blood pressure, adequacy of pulmonary ventilation, and response to care were monitored throughout the procedure. The physical status of the patient was re-assessed after the procedure. After obtaining informed consent, the endoscope was passed under direct vision. Throughout the procedure, the patient's blood pressure, pulse, and oxygen saturations were monitored continuously. The gastroscope was introduced through the mouth, and advanced to the third part of the duodenum. Small bowel enteroscopy was deemed necessary. The upper GI endoscopy was accomplished without difficulty. The patient tolerated the procedure well. Scope In: 3:13:30 PM Scope Out: 3:15:16 PM Total Procedure Duration Time 0 hours 1 minute 46 seconds Findings: The examined esophagus was normal. No gross lesions were noted in the entire examined stomach. There was evidence of a gastrostomy present in the entire examined stomach. The examined duodenum was normal. Impression: - Normal esophagus. - No gross lesions in the entire stomach. - Gastrostomy present. - Normal examined duodenum. - No specimens collected. Recommendation: - Return patient to hospital lam for ongoing care. - Resume previous diet. - Continue present medications. Procedure Code(s): --- Professional --- 84329, Small intestinal endoscopy, enteroscopy beyond second portion of duodenum, not including ileum; diagnostic, including collection of specimen(s) by brushing or washing, when performed (separate procedure) CPT copyright 2021 [employer]. All rights reserved. The codes documented in this report are preliminary and upon claims auditor review may be revised to meet current compliance requirements. Jeremy Bee DO 06/23/2024 3:27:21 PM This report has been signed electronically. Number of Addenda: 0 Note Initiated On: 06/23/2024 3:00 PM
--- NOTE | 2024-06-23 16:00 | POSTOPAN2_ITS ---
Anesthesia Postop Eval I Sum Postop Eval Completion status Anesthesia document: Postop Eval 1 completed: Yes Anesthesia Postop Eval I Summary Anesthesia Postop Eval I Summary: Anesthesia Postop Eval I: Assessment Summary Airway patent Yes 06/23/24 15:27 [email or web address] [email or web address] Spontaneous unlabored Yes 06/23/24 15:27 FREELANCE DIRECTOR.[email or web address] respirations Mental status Awake,Calm 06/23/24 15:27 FREELANCE DIRECTOR.[email or web address] nausea No 06/23/24 15:27 FREELANCE DIRECTOR.[email or web address] Vomiting No 06/23/24 15:27 FREELANCE DIRECTOR.[email or web address] Anesthesia Postop Eval I: Fluid Summary Crystalloid volume administer 200 06/23/24 15:27 FREELANCE DIRECTOR.[email or web address] (ml) Colloids volume administered ( ml) Blood Product volume administered (ml) Total IV fluid infused 200 06/23/24 15:27 FREELANCE DIRECTOR.[email or web address] Anesthesia Postop Eval I: Summary Notes Anesthesia Complication No 06/23/24 15:27 FREELANCE DIRECTOR.[email or web address] Anesthesia Complication Comment: Post-operative progress note Anesthesia: Postop Eval II Evaluation Mental status: Awake Pain Level: 0 nausea: No Vomiting: No Complications Anesthesia Complication: No
--- NOTE | 2024-06-23 16:00 | PCM.POSTANE2 ---
Anesthesia Postop Eval I Sum Postop Eval Completion status Anesthesia document: Postop Eval 1 completed: Yes Anesthesia Postop Eval I Summary Anesthesia Postop Eval I Summary: Anesthesia Postop Eval I: Assessment Summary Airway patent Yes 06/23/24 15:27 COMPENSATION AND BENEFITS ANALYST.[email or web address] Spontaneous unlabored Yes 06/23/24 15:27 COMPENSATION AND BENEFITS ANALYST.JBLOU respirations Mental status Awake,Calm 06/23/24 15:27 COMPENSATION AND BENEFITS ANALYST.JBLOU nausea No 06/23/24 15:27 COMPENSATION AND BENEFITS ANALYST.JBLOU Vomiting No 06/23/24 15:27 COMPENSATION AND BENEFITS ANALYST.JBLOU Anesthesia Postop Eval I: Fluid Summary Crystalloid volume administer 200 06/23/24 15:27 COMPENSATION AND BENEFITS ANALYST.JBLOU (ml) Colloids volume administered ( ml) Blood Product volume administered (ml) Total IV fluid infused 200 06/23/24 15:27 COMPENSATION AND BENEFITS ANALYST.JBLOU Anesthesia Postop Eval I: Summary Notes Anesthesia Complication No 06/23/24 15:27 COMPENSATION AND BENEFITS ANALYST.JBLOU Anesthesia Complication Comment: Post-operative progress note Anesthesia: Postop Eval II Evaluation Mental status: Awake Pain Level: 0 nausea: No Vomiting: No Complications Anesthesia Complication: No
[2024-06-23] MEDS: Petrolatum,White 3.75GM OPTH.TUBE 1 APPLIC OPHTHALMIC (21:34)
[2024-06-24 00:37] LABS: Vancomycin, Trough Level 14.8 ug/mL (5.0-15.0)
--- NOTE | 2024-06-24 01:17 | PCM.RX.CS ---
Consult Antibiotic Management Pharmacy has been consulted to manage selected antibiotic: Vancomycin Type of Intervention Type of Consult: Follow-up Labs Labs: Sodium 146 mmol/L (133-145) H 06/23/24 06:36 Potassium 3.2 mmol/L (3.3-5.1) L 06/23/24 06:36 Chloride 115 mmol/L (98-108) H 06/23/24 06:36 Carbon Dioxide 21.3 mmol/L (21.0-32.0) 06/23/24 06:36 Anion Gap 9 (5-15) 06/23/24 06:36 BUN 11 mg/dL (4-19) 06/23/24 06:36 Creatinine 0.88 mg/dL (0.70-1.20) 06/23/24 06:36 Est GFR (MDRD) Non-Af 95 (>60) 06/23/24 06:36 BUN/Creatinine Ratio 12.3 RATIO (10-20) 06/23/24 06:36 Glucose 97 mg/dL (70-99) 06/23/24 06:36 Vancomycin Trough 14.8 ug/mL (5.0-15.0) 06/23/24 23:35 Microbiology Microbiology: Microbiology 06/20/24 22:04 Blood Culture (Wb) - Anticubital Right Blood Culture - Preliminary No growth in 48 hours. 06/20/24 19:50 Blood Culture (Wb) - Left Forearm Blood Culture - Preliminary No growth in 48 hours. 06/21/24 08:50 Stool Stool Occult Blood (LORI) - Final Occult Blood Positive 06/21/24 12:14 Urine, Random Legionella Antigen - Final 06/21/24 12:14 Interface Orders Streptococcus pneumoniae Antigen (M - Final 06/20/24 20:25 Mucosa - Nasopharyngeal Respiratory Panel (PCR) - Final 06/20/24 14:50 Mucosa - Nose SARS-CoV-2, Influenza & RSV (PCR) - Final Goal Trough Goal Trough: 15-20 mcg/mL Pharmacy Plan for Drug Dosing Pharmacy Plan for Drug Dosing: Pharmacy Service will continue to monitor and adjust dosing as required. TROUGH 14.8. SCR DECREASED FROM 1.0 TO 0.88. IONCREASE TO 1GM Q12H AND DRAW TROUGH PRIOR TO 4TH DOSE Follow-Up Labs Follow-Up Labs: Trough: Vancomycin Date/Time Labs Ordered Labs to be done on [date and time ordered]: 06/25 @ 3315
[2024-06-24] MEDS: Vancomycin IV 1,000 MG/200 ML BAG 200 MG IV (01:24)
[2024-06-24] MEDS: Vancomycin Trough/Random Due 1 LAB MC (01:26)
[2024-06-24 05:00] VITALS: BP 123/99; PULSE 79; RESP 20; TEMP 37.1; O2SAT 95
[2024-06-24] MEDS: Piperacil/Tazobactam 3.375 GM in 0.9% Normal Saline (50mL MB+) 50 ML IV (05:27)
[2024-06-24 06:25] LABS: Absolute Lymphocyte Count 2.02 X10^3/uL (0.83-4.51); Absolute Neutrophil Count 4.4 X10^3/uL (2.0-7.7); Basophil# 0.02 X10^3/uL; Basophil% 0.3 % (0-1); Eosinophil# 0.13 X10^3/uL; Eosinophils% 1.9 % (0-5); Hematocrit 30.4 % (40-54); Hemoglobin 10.1 g/dL (13.0-16.5); Lymphocyte # 2.02 X10^3/ul (0.83-4.51); Lymphocyte % 28.8 % (19-41); Mean Corp Hgb Conc 33.2 g/dL (32-36); Mean Corpuscular Hgb 29.2 pg (27.0-32.0); Mean Corpuscular Volume 87.9 fL (80-94); Mean Platelet Vol. 10.4 fl (6.2-12.0); Monocyte# 0.43 X10^3/uL; Monocyte% 6.1 % (0-10); NRBC Flagged by Analyzer 0 % (0-5); Neutrophil # 4.38 X10^3/uL (2.7-7.7); Neutrophil % 62.3 % (47-70); Platelet Count 193 K/mm3 (150-450); RBC Distribution Width CV 12.4 % (11.6-14.6); RBC Distribution Width SD 39.8 fl (35.1-43.9); Red Blood Count 3.46 M/mm3 (4.6-6.2)
[2024-06-24 06:45] LABS: Anion Gap 16 (5-15); BUN 12 mg/dL (4-19); BUN/Creat Ratio 13.3 RATIO (10-20); Calcium,Total 8.6 mg/dL (7.6-11.0); Carbon Dioxide 16.5 mmol/L (21.0-32.0); Chloride 118 mmol/L (98-108); Creatinine, Serum 0.87 mg/dL (0.70-1.20); EST Glomerular Filtration Rate 96 (>60); Estimated Creatinine Clearance 68.37 ml/min (50-250); Glucose 74 mg/dL (70-99); Potassium 3.5 mmol/L (3.3-5.1); Sodium Level 150 mmol/L (133-145)
[2024-06-24 08:49] VITALS: BP 139/107; PULSE 84; RESP 18; TEMP 37.3; O2SAT 95
--- NOTE | 2024-06-24 09:20 | PCM.PN.HOSP ---
Reason for Visit Reason for Visit: Diagnoses Sepsis, unspecified organism (06/20/24) Pneumonitis due to inhalation of food and vomit (06/20/24) Gastrointestinal hemorrhage, unspecified (06/20/24) Hypoxemia (06/20/24) Personal history of other diseases of the nervous system and sense organs (06/20/24) Objective Data Objective Data Vital Signs: Vital Signs Temp Pulse Resp BP Pulse Ox O2 Del Method O2 Flow Rate 99.2 F H 84 18 139/107 H 95 Room Air 2 06/24/24 08:49 06/24/24 08:49 06/24/24 08:49 06/24/24 08:49 06/24/24 08:49 06/24/24 08:49 06/23/24 15:25 FiO2 96 06/23/24 14:46 Oxygen Flow Rate (L/min) 2 Oxygen Delivery Method Room Air Weight: 57.1 kg Body Mass Index (BMI) 20.9 Intake & Output: Intake and Output for Last 24 Hours 06/22/24 06/23/24 06/24/24 23:59 23:59 23:59 Intake Total 2444.83 / 2444.83 2592.00 / 2592.00 250 / 250 Output Total 800 / 900 1300 / 1300 350 / 350 Balance 1644.83 / 1544.83 1292.00 / 1292.00 -100 / -100 Lab / Micro Data 06/24/24 06:15 06/24/24 06:15 Labs: Laboratory Results - last 24 hr 06/23/24 23:35: Vancomycin Trough 14.8 06/24/24 06:15: WBC 7.0, RBC 3.46 L, Hgb 10.1 L, Hct 30.4 L, MCV 87.9, MCH 29.2, MCHC 33.2, RDW Std Deviation 39.8, RDW Coeff of Usha 12.4, Plt Count 193, MPV 10.4, Immature Gran % (Auto) 0.600, Neut % (Auto) 62.3, Lymph % (Auto) 28.8, [place] % (Auto) 6.1, Eos % (Auto) 1.9, Baso % (Auto) 0.3, Absolute Neuts (auto) 4.4, Absolute Lymphs (auto) 2.02, Nucleated RBC % 0, Sodium 150 H, Potassium 3.5, Chloride 118 H, Carbon Dioxide 16.5 L, Anion Gap 16 H, BUN 12, Creatinine 0.87, Estim Creat Clear Calc 68.37, Est GFR (MDRD) Non-Af 96, BUN/Creatinine Ratio 13.3, Glucose 74, Calcium 8.6 Micro: Microbiology 06/20/24 22:04 Blood Culture (Wb) - Anticubital Right Blood Culture - Preliminary No growth in 48 hours. 06/20/24 19:50 Blood Culture (Wb) - Left Forearm Blood Culture - Preliminary No growth in 48 hours. 06/21/24 08:50 Stool Stool Occult Blood (LORI) - Final Occult Blood Positive 06/21/24 12:14 Urine, Random Legionella Antigen - Final 06/21/24 12:14 Interface Orders Streptococcus pneumoniae Antigen (M - Final 06/20/24 20:25 Mucosa - Nasopharyngeal Respiratory Panel (PCR) - Final 06/20/24 14:50 Mucosa - Nose SARS-CoV-2, Influenza & RSV (PCR) - Final Rhythm Strip Rhythm Strip: Sinus Tach Rate: 140 Ectopy: None Assessment & Plan Assessment/Plan (1) Sepsis: (2) Aspiration pneumonia: PLAN: Plan Sepsis 2/2 Aspiration PNA Charges/Coding Visit Charges Inpatient E&M: 29106 Disch Hosp >30min
[2024-06-24] MEDS: Pantoprazole Sodium 40 MG in 0.9% Normal Saline (100mL MB+) 100 ML 330 MG IV (09:35)
[2024-06-24] MEDS: levETIRAcetam IV 250 MG in 0.9% Normal Saline (100mL Bag) 100 ML 410 MG IV (10:21)
--- NOTE | 2024-06-24 12:12 | CASEMGMT ---
Patient is going to be discharged back to the intermediate today. RANDY called Michelle from the intermediate and let her know this information. Michelle asked that any medications patient needs right away will need to go to [facility] Michelle asked if she could have a time frame. RANDY told her SW will let her know when the physician puts patient's discharge in the computer. Michelle said she gets off work at 5p so it would be helpful if he was discharged earlier than that. RANDY told Michelle PADILLA will notify physician. RANDY will give her a call. RANDY did speak with physician and she will work on patient's discharge. Patient will be discharged on an antibiotic. RANDY switched patient's preferred pharmacy to [facility] in [place] per Michelle's request. Kelsea CHANCE
[2024-06-24] MEDS: Jevity 1.5. 1,000 ML Bottle 120 ML PO (12:20)
[2024-06-24] MEDS: Lactated Ringers 1,000 ML 999 ML IV (12:20)
[2024-06-24] MEDS: Ampicillin/Sulbactam 3 GM in 0.9% Normal Saline (100mL MB+) 100 ML IV (12:21)
--- NOTE | 2024-06-24 14:17 | PCM.DC.SUM ---
Providers Date of Admission: 06/20/24 Date of Discharge: 06/24/24 Primary Care Physician: Dr. Tej Hernandez, Consultations 06/21/24 06:56 Consult: Gastroenterology Routine Consulting Provider: [facility] Reason for Consult: GI bleed EMERGENT Consult: No Notified: Yes Date Notified: 06/21/24 Time Notified: 06:56 Method of Notification: Text 06/22/24 08:16 Consult: Gastroenterology Routine Consulting Provider: [facility] Reason for Consult: acute iron deficiency anemia EMERGENT Consult: No Notified: Yes Date Notified: 06/22/24 Time Notified: 08:16 Method of Notification: Text Reason For Visit: ASPIRATION PNEUMONIA Diagnosis Discharge Diagnosis (1) Sepsis: Status: Acute Code(s): A41.9 - Sepsis, unspecified organism (2) Aspiration pneumonia: Status: Acute Code(s): J69.0 - Pneumonitis due to inhalation of food and vomit Plan Sepsis 2/2 Aspiration PNA Medications at Discharge Home Medications acetaminophen 325 mg capsule (Tylenol) 650 mg PO Q6H PRN fever or pain 05/26/21 acetaminophen 325 mg capsule (Tylenol) 975 mg PO BID pain and fever 05/26/21 alprazolam 0.5 mg tablet 0.5 mg PO DAILY PRN anxiety 05/26/21 guaifenesin 100 mg/5 mL oral liquid 200 mg PO Q4H PRN cough 05/26/21 loratadine 10 mg capsule 10 mg PO DAILY allergy 05/26/21 polyethylene glycol 3350 17 gram/dose oral powder (Miralax) 17 g feeding tube DAILY constipation 05/26/21 propylene glycol 0.6 % eye drops (Systane Complete) 1 drp ophthalmic (eye) TID PRN dry eye(s) 11/30/22 sertraline 100 mg tablet 100 mg PO DAILY depression 11/30/22 baclofen 10 mg tablet 10 mg .Route .COMPLEX spascity #90 tabs 07/26/23 vevuwgmnnrhkauu-ncmiiqtrnyqdkvs-CI 2 mg-30 mg-10 mg/5 mL oral syrup 5 ml PO Q4-6H PRN bronchitis 05/29/24 dextran 70-hypromellose 0.1 %-0.3 % eye drops (GenTeal Tears Mild) 1 drp ophthalmic (eye) QHS PRN dry eye(s) 05/29/24 lactose-reduced food with fiber 0.06 gram-1.5 kcal/mL oral liquid (Jevity 1.5 Raymundo) 120 ml feeding tube TID feeding 05/29/24 white petrolatum-mineral oil 56.8 %-42.5 % eye ointment (Refresh Lacri-Lube) 1 applic ophthalmic (eye) QHS dry eye 05/29/24 levetiracetam 250 mg tablet 250 mg PO Q12H seizure 06/20/24 amoxicillin 250 mg-potassium clavulanate 62.5 mg/5 mL oral suspension (Augmentin) 10 ml PO TID #150 mL 06/24/24 omeprazole 20 mg delayed release,disintegrating tablet 20 mg PO DAILY 30 days #30 tabs 06/24/24 Hospital Course Operations None Procedures 2-D Echocardiogram, EGD and - (Chest x-ray/CTA chest) Summary of Care Provided Minutes Spent on Discharge: 37 Hospital Course: Mr. Landeros is a 63-year-old white male who presented to the emergency department at [facility] on 06/20/2024 with a chief complaint of shortness of breath. Patient is a resident of a halfway and immobile and aphasic at baseline. He was brought in from his halfway due to shortness of breath and coughing. History was obtained by his caregiver on presentation. Patient had an episode of emesis on the morning of admission but is unclear vomiting times he had vomiting. He subsequently became short of breath so they run in the emergency department. Patient was also coughing after his emesis. He was suspected that he had an aspiration event at the time of presentation. Vital signs on presentation showed a temperature of 102.5, heart rate 128, blood pressure was 144/86 and pulse ox was 99% on 2 L nasal cannula. Patient does not wear oxygen at baseline. CBC on presentation was unremarkable other than a left shift with an 87.1% neutrophilia. Chemistry panel was overall unremarkable other than some maybe mild dehydration with a BUN of 31 and a creatinine of 1.0. Initial lactic acid was 2.3 with a repeat of 1.9. Iron studies were obtained during his hospital course and he was found to have a low iron saturation and total iron at 6.4 and 14 respectively with an unsaturated IBC of 205 however his TIBC was 219. Ferritin was normal at 103. TSH was normal at 1.52. Chest x-ray was unremarkable and a CTA of his chest showed no evidence of PE but patient did have patchy opacity in the lung bases bilaterally. He was initially admitted to [facility] but due to decompensation was transferred to telemetry as his oxygen requirements went up and his heart rate was into the 150s. Respiratory viral panel and COVID/flu/RSV were unremarkable. Blood cultures were unremarkable for any growth at 48 hours. Patient was not able to produce sputum culture however strep pneumo and Legionella antigens are negative. Stool was positive for occult blood. His hemoglobin did drop to a delbert of 9.5 on 06/23/2024. No blood transfusion was required. On the day of discharge his hemoglobin have improved to 10.1. Given the drop in hemoglobin he was placed on Protonix 40 mg IV twice daily and GI was consulted. He was taken for EGD as that was the biggest concern given his emesis on presentation. EGD was performed on 06/23/2024 and showed a normal esophagus, no gross lesions in the entire stomach or the duodenum and patient had evidence of well appearing gastrostomy tube. We started him back on tube feed as per discussion with Dr. Bee he did not want to aggressively pursue colonoscopy at this time given the patient's overall comorbidities and he felt that this would be markedly difficult. He did indicate he would follow-up visit after his outpatient and consider it depending on what his hemoglobin does. Given the hemoglobin stability on the day of discharge, pursuing this further did not feel to be warranted by gastroenterology. He was discharged on omeprazole dissolvable tablets daily to buy hesf-xqq-hdvanqw and to be placed in his PEG tube. An echocardiogram was done during his hospitalization as well and showed a normal EF of 55 to 60% with normal LV systolic function no valvular abnormalities and no diastolic dysfunction. He was able to be weaned to room air. Antibiotics with Augmentin were continued at time of discharge to complete a total of a 7-day course. These were all related to PEG placement. Patient was restarted on his home diet which was oral sparingly for comfort with supervision and his tube feeds. He did appear to be a bit dry due to his ongoing n.p.o. status and repeat lab was obtained after 1 L of IV fluids given. His labs did not improve. He was felt stable for discharge back to his halfway with follow-up to see GI on 07/07/2024 and his primary care physician within the next week was recommended. Discharge diagnoses: Sepsis secondary to aspiration pneumonia GI bleed Hypoxia-resolved Acute anemia Hyponatremia-resolving Hypokalemia-resolved CP Severe Chronic Debility Chronic dysphagia with aspiration History of epilepsy Intellectual disability Spasticity Seasonal allergies Constipation Depression Physical Exam Const alert Constitutional Narrative: Upper middle-aged, -[place] male, lying in bed, nonverbal at baseline, patient with some dyskinesia, appears comfortable, does not look toxic General Appearance: comfortable, well kempt and well developed HEENT normocephalic and head/scalp atraumatic HEENT Narrative: Edentulous, oropharynx appears mildly dry Eyes conjunctivae normal Eyes Narrative: No scleral icterus Neck supple Neck Narrative: Trachea midline Resp normal respiratory effort, no retractions, no use of accessory muscles and No clear to auscultation bilaterally Resp Narrative: Few crackles in right base but otherwise clear Auscultation: crackles; Negative for rhonchi or wheezes Cardio regular rate, regular rhythm, S1 normal heart sound, S2 normal heart sound, no murmurs, no rub, no gallops and no clicks GI normal to inspection, nondistended, normoactive bowel sounds, soft to palpation and non-tender GI Narrative: PEG tube left upper quadrant clean dry and intact Extremity no clubbing, cyanosis or edema Extremity Narrative: Pedal and radial pulses are 2+ Skin no jaundice, no petechiae and no mottling Neuro moves all extremities Neuro Narrative: Patient was for significant spasticity but spontaneously moves all extremities in a general sense Speech: Negative for speech normal Psych Psych Narrative: Difficult to assess Weight / BMI Weight Weight: 57.1 kg Body Mass Index (BMI) 20.9 ABG / Lab / Microbiology Data 06/24/24 06:15 06/24/24 14:53 Laboratory: Laboratory Results - last 24 hr 06/23/24 23:35: Vancomycin Trough 14.8 06/24/24 06:15: WBC 7.0, RBC 3.46 L, Hgb 10.1 L, Hct 30.4 L, MCV 87.9, MCH 29.2, MCHC 33.2, RDW Std Deviation 39.8, RDW Coeff of Usha 12.4, Plt Count 193, MPV 10.4, Immature Gran % (Auto) 0.600, Neut % (Auto) 62.3, Lymph % (Auto) 28.8, [place] % (Auto) 6.1, Eos % (Auto) 1.9, Baso % (Auto) 0.3, Absolute Neuts (auto) 4.4, Absolute Lymphs (auto) 2.02, Nucleated RBC % 0, Sodium 150 H, Potassium 3.5, Chloride 118 H, Carbon Dioxide 16.5 L, Anion Gap 16 H, BUN 12, Creatinine 0.87, Estim Creat Clear Calc 68.37, Est GFR (MDRD) Non-Af 96, BUN/Creatinine Ratio 13.3, Glucose 74, Calcium 8.6 06/24/24 14:53: Sodium 151 H, Potassium 3.5, Chloride 119 H, Carbon Dioxide 18.4 L, Anion Gap 14, BUN 13, Creatinine 0.86, Estim Creat Clear Calc 69.16, Est GFR (MDRD) Non-Af 96, BUN/Creatinine Ratio 15.2, Glucose 88, Calcium 8.7 Microbiology: Microbiology 06/20/24 22:04 Blood Culture (Wb) - Anticubital Right Blood Culture - Preliminary No growth in 48 hours. 06/20/24 19:50 Blood Culture (Wb) - Left Forearm Blood Culture - Preliminary No growth in 48 hours. 06/21/24 08:50 Stool Stool Occult Blood (LORI) - Final Occult Blood Positive 06/21/24 12:14 Urine, Random Legionella Antigen - Final 06/21/24 12:14 Interface Orders Streptococcus pneumoniae Antigen (M - Final 06/20/24 20:25 Mucosa - Nasopharyngeal Respiratory Panel (PCR) - Final 06/20/24 14:50 Mucosa - Nose SARS-CoV-2, Influenza & RSV (PCR) - Final D/C Instructions Discharge Diet: - (Resume previous diet) Discharge Activity: Return to Normal Activity DC O2, CPAP, BIPAP Needs Home O2 Discharge instructions: No Meaningful Use Info Meaningful Use Meaningful Use Diagnoses (Choose all that apply): None applicable Ischemic Stroke Statin Dosing Therapy Reference: STATIN DOSE THERAPY REFERENCE: * Patients > 75 years receive moderate or high dose statin therapy. * Patients 75 years or YOUNGER should receive HIGH intensity statin dose unless contraindicated. You will be required to document reason for non-treatment if statin daily dose does not meet guidelines. HIGH DOSE STATIN THERAPY DAILY Atorvastatin > than or = to 40 mg Rosuvastatin > than or = to 20 mg Amlodipine + Atorvastatin > than or = to 2.5/40 mg Ezetimibe + Simvastatin 10/80 mg Simvastatin 80mg Discharge Plan Admission Admit Date/Time: 06/20/24 16:18 Primary Reason for Your Visit: Shortness breath/emesis Attending Provider: Aleyda Scott Primary Care Provider: Tej Hernandez Consulting Providers: Anamaria Ghotra Instructions Additional Instructions / Restrictions: 1. Please buy qpck-vud-mntcegx omeprazole in place via PEG tube daily\ 2. Complete antibiotics as ordered by giving via PEG tube 3. Please follow-up with gastroenterology, Dr. Bee, as noted below for consideration of colonoscopy in the future Discharge Orders/Prescriptions Prescriptions: New omeprazole 20 mg tablet,disintegrat, delay rel 20 mg PO DAILY 30 Days Qty: 30 1RF amoxicillin-pot clavulanate [Augmentin] 250-62.5 mg/5 mL suspension for reconstitution 10 ml PO TID Qty: 150 0RF Continued loratadine 10 mg capsule 10 mg PO DAILY polyethylene glycol 3350 [Miralax] 17 gram/dose powder 17 g feeding tube DAILY acetaminophen [Tylenol] 325 mg capsule 975 mg PO BID alprazolam 0.5 mg tablet 0.5 mg PO DAILY PRN (Reason: anxiety) Rx Instructions: 30-60 mins prior to eye exam acetaminophen [Tylenol] 325 mg capsule 650 mg PO Q6H PRN (Reason: fever or pain) guaifenesin 100 mg/5 mL liquid 200 mg PO Q4H PRN (Reason: cough) Systane Complete 0.6 % drops 1 drp ophthalmic (eye) TID PRN (Reason: dry eye(s)) Rx Instructions: administer 1 drop to both eyes 3 times daily (dry eyes) sertraline 100 mg tablet 100 mg PO DAILY Rx Instructions: 100 mg via G-tube daily GenTeal Tears Mild 0.1-0.3 % drops 1 drp ophthalmic (eye) QHS PRN (Reason: dry eye(s)) Rx Instructions: instill 1-2 drops in both eyes as needed for c/o of dry eyes baclofen 10 mg tablet 10 mg .ROUTE .COMPLEX Qty: 90 11RF Rx Instructions: 10 mg via G-tube TID medinrksfvhocwa-qyfuzqvre-RJ 2-30-10 mg/5 mL syrup 5 ml PO Q4-6H PRN (Reason: bronchitis) Refresh Lacri-Lube 56.8-42.5 % ointment 1 applic ophthalmic (eye) QHS Jevity 1.5 Raymundo 0.06 gram-1.5 kcal/mL liquid 120 ml feeding tube TID Rx Instructions: Uses Jevity or Isosource levetiracetam 250 mg tablet 250 mg PO Q12H Rx Instructions: 250 mg via G-tube BID Referrals / Follow Up: Tej Hernandez DO [Primary Care Provider] - Within 1 Week FriendJeremy DO [Med Staff - Active Staff] - 07/07/24 2:00 pm Disposition Disposition (needs filled in before D/C Order can be placed): Home, Self Care Charges/Coding Visit Charges Inpatient E&M: 18292 Disch Hosp >30min
--- NOTE | 2024-06-24 15:11 | CASEMGMT ---
RANDY called Michelle and let her know physician is waiting on lab work to come back to make sure patient can be discharged. RANDY told Michelle PADILLA will update her as soon as RANDY has more information. Kelsea CHANCE
--- NOTE | 2024-06-24 15:18 | PHA.DC_ITS ---
Pharmacy [place] Med Reconciliation Pharmacy Service has performed discharge medication reconciliation for this patient. Discharge to senior living, did not savings counselor. The patient's discharge medication list was reviewed for discrepancies and discrepancies were resolved. Medications at Discharge Home Medications acetaminophen 325 mg capsule (Tylenol) 650 mg PO Q6H PRN fever or pain 05/26/21 acetaminophen 325 mg capsule (Tylenol) 975 mg PO BID pain and fever 05/26/21 alprazolam 0.5 mg tablet 0.5 mg PO DAILY PRN anxiety 05/26/21 guaifenesin 100 mg/5 mL oral liquid 200 mg PO Q4H PRN cough 05/26/21 loratadine 10 mg capsule 10 mg PO DAILY allergy 05/26/21 polyethylene glycol 3350 17 gram/dose oral powder (Miralax) 17 g feeding tube DAILY constipation 05/26/21 propylene glycol 0.6 % eye drops (Systane Complete) 1 drp ophthalmic (eye) TID PRN dry eye(s) 11/30/22 sertraline 100 mg tablet 100 mg PO DAILY depression 11/30/22 baclofen 10 mg tablet 10 mg .Route .COMPLEX spascity #90 tabs 07/26/23 lqseeraqfrjxzbs-lavplehzssyejap-OW 2 mg-30 mg-10 mg/5 mL oral syrup 5 ml PO Q4- 6H PRN bronchitis 05/29/24 dextran 70-hypromellose 0.1 %-0.3 % eye drops (GenTeal Tears Mild) 1 drp ophthalmic (eye) QHS PRN dry eye(s) 05/29/24 lactose-reduced food with fiber 0.06 gram-1.5 kcal/mL oral liquid (Jevity 1.5 Raymundo) 120 ml feeding tube TID feeding 05/29/24 white petrolatum-mineral oil 56.8 %-42.5 % eye ointment (Refresh Lacri-Lube) 1 applic ophthalmic (eye) QHS dry eye 05/29/24 levetiracetam 250 mg tablet 250 mg PO Q12H seizure 06/20/24 amoxicillin 250 mg-potassium clavulanate 62.5 mg/5 mL oral suspension (Augmentin) 10 ml PO TID #150 mL 06/24/24 omeprazole 20 mg delayed release,disintegrating tablet 20 mg PO DAILY 30 days #30 tabs 06/24/24
[2024-06-24 15:38] LABS: Anion Gap 14 (5-15); BUN 13 mg/dL (4-19); BUN/Creat Ratio 15.2 RATIO (10-20); Calcium,Total 8.7 mg/dL (7.6-11.0); Carbon Dioxide 18.4 mmol/L (21.0-32.0); Chloride 119 mmol/L (98-108); Creatinine, Serum 0.86 mg/dL (0.70-1.20); EST Glomerular Filtration Rate 96 (>60); Estimated Creatinine Clearance 69.16 ml/min (50-250); Glucose 88 mg/dL (70-99); Potassium 3.5 mmol/L (3.3-5.1); Sodium Level 151 mmol/L (133-145)
--- NOTE | 2024-06-24 15:51 | CASEMGMT ---
Per physician patient can be discharged. RANDY [facility] and let her know [facility] will be able to [facility] back to the [facility] today. RANDY also called patient's legal guardian Aline and let her know as well. Kelsea Davalos
[2024-06-24 17:26] VITALS: BP 163/69; PULSE 83; TEMP 36.9
--- NOTE | 2024-06-24 18:25 | PCM.PN.BLA ---
Progress Note Patient underwent endoscopy was there was no abnormality seen. Physical Exam Const average body habitus Resp normal respiratory effort, normal air movement and clear to auscultation bilaterally Cardio regular rate, regular rhythm, no murmurs and diaphoretic Assessment & Plan Assessment/Plan (1) History of cerebral palsy: (2) Aspiration pneumonia: (3) Hypoxia: (4) Sepsis: (5) GI bleed: PLAN: Plan 63-year-old with history of cerebral palsy and seizure disorder who is totally PEG dependent presents with multiple episodes of nausea vomiting with the aspiration ammonia. All signs of infection have been ruled out via blood work, repeat imaging. He is also not requiring any supplemental oxygen at this time. However with multiple episodes of nausea vomiting and decreasing hemoglobin along with gastric contents positive for blood and stool positive for blood he underwent an upper endoscopy to evaluate his upper GI tract. There were no abnormalities found. Consider capsule endoscopy and colonoscopy to find etiology of his iron deficiency anemia. Visit Charges Inpatient E&M: 35699 Subs Hosp L3
== END 2024-06-24 18:12 | disposition home or self-care (01) | DRG 377 ==
LOC: ED 16:07 → MS3 17:21 → PCU 23:05
PROVIDERS: Family Medicine; Internal Medicine Gastroenterology; Admitting Provider Student in an Organized Health Care Education/Training Program; Emergency Provider Emergency Medicine; PCP Family Medicine; Visit Provider Internal Medicine
PROC: 0DJ08ZZ Inspection of Upper Intestinal Tract, Via Natural or Artificial Opening Endoscopic (ICD-10-PCS; CPT 43235; principal; 2024-06-23 15:55)
DX: K92.2 Gastrointestinal hemorrhage, unspecified (principal); J69.0 Pneumonitis due to inhalation of food and vomit; A41.9 Sepsis, unspecified organism; G93.40 Encephalopathy, unspecified; E87.0 Hyperosmolality and hypernatremia; E87.20 Acidosis, unspecified; J98.11 Atelectasis; G40.909 Epilepsy, unspecified, not intractable, without status epilepticus; G80.9 Cerebral palsy, unspecified; D50.9 Iron deficiency anemia, unspecified; Z93.1 Gastrostomy status; G71.09 Other specified muscular dystrophies; E87.6 Hypokalemia; R11.10 Vomiting, unspecified; K31.89 Other diseases of stomach and duodenum; Z66 Do not resuscitate; R09.02 Hypoxemia; Z11.52 Encounter for screening for COVID-19; Z79.899 Other long term (current) drug therapy; Z79.620 Long term (current) use of immunosuppressive biologic; I51.7 Cardiomegaly; R00.0 Tachycardia, unspecified
CPT/HCPCS: 36415; 71045; 71275; 80048; 80202; 82274; 82728; 83540; 83550; 83605; 84443; 85014; 85018; 85025; 87040; 87449; 87631; 87633; 93005; 93306; 94640; 97161; 97165; 97802; 97803; 99285; Q9967; A4216; J0295; J2405

== ENCOUNTER → 2024-07-07 | Outpatient (CLI) | payer MEDICARE, MEDICAID, SELFPAY ==
[2024-07-07 15:52] LABS: Absolute Lymphocyte Count 2.32 X10^3/uL (0.83-4.51); Absolute Neutrophil Count 4.9 X10^3/uL (2.0-7.7); Basophil# 0.05 X10^3/uL; Basophil% 0.6 % (0-1); Eosinophils% 3.6 % (0-5); Hemoglobin 12.1 g/dL (13.0-16.5); Lymphocyte # 2.32 X10^3/ul (0.83-4.51); Lymphocyte % 28.2 % (19-41); Mean Corp Hgb Conc 32.7 g/dL (32-36); Mean Corpuscular Hgb 28.9 pg (27.0-32.0); Mean Corpuscular Volume 88.3 fL (80-94); Mean Platelet Vol. 11.7 fl (6.2-12.0); Monocyte# 0.67 X10^3/uL; Monocyte% 8.2 % (0-10); NRBC Flagged by Analyzer 0 % (0-5); Neutrophil # 4.85 X10^3/uL (2.7-7.7); Platelet Count 357 K/mm3 (150-450); RBC Distribution Width CV 12.5 % (11.6-14.6); RBC Distribution Width SD 39.7 fl (35.1-43.9); Red Blood Count 4.19 M/mm3 (4.6-6.2); White Blood Count 8.2 K/mm3 (4.4-11.0)
[2024-07-07 16:28] LABS: Ferritin 114 ng/mL (37-417); Iron 52 ug/dL (65-175); Iron Binding Capacity,Total 280 ug/dL (250-450); Iron Binding Capacity,Unsat 228 ug/dL (228-428)
== END | disposition home or self-care (01) ==
PROVIDERS: PCP Family Medicine; Referring Provider Nurse Practitioner Acute Care; Visit Provider Nurse Practitioner Acute Care
DX: D64.9 Anemia, unspecified (principal)
CPT/HCPCS: 36415; 82728; 83540; 83550; 85025